=== PATIENT | female | born 1960 | race Hispanic/Latino ===

== ENCOUNTER 2019-08-17 22:17 | Emergency (ER) | payer MEDICARE ==
[~2019-08-17] VITALS: Ht 162.6 cm; Wt 81.6 kg
[2019-08-17] MEDS ORDERED: DIATRIZOATE MEGL/DIATRIZOA SOD 30 ML BTL PO ONE (22:50)
--- NOTE | 2019-08-17 23:29 | Diagnostic Imaging Report ---
EXAM: Abdomen Radiograph 1 View(s) INDICATION: ^PEG TUBE PLACEMENT ^[id number] ^[id number] COMPARISON: None FINDINGS: Contrast injected through an existing percutaneous gastrostomy tube opacifies the stomach. The bowel gas pattern is nonspecific. An IVC filter is noted. No acute osseous abnormality. IMPRESSION: Contrast injection through the gastrostomy tube opacifies the stomach. Signed by: Alpesh Angelo MD on 08/17/2019 11:25 PM
--- NOTE | 2019-08-17 23:33 | Emergency Department Note ---
History of Present Illnes History of Present Illness Chief Complaint: General Medicine Complaints History of Present Illness This is a 58 year old female arrives to the ED for a PEG tube dislodgment-patient unable to provide history secondary to chronic clinical condition. History limited by: condition of the patient Progression: unable to specify Context: Reports other Treatments prior to arrival: none, other (ayala catheter in place on arrival ) Past Medical/Family History Physician Review I have reviewed the patient's past medical and family history. Any updates have been documented here. Past Medical History Unable to obtain PMH: Unable to obtain due to, altered mental status Social History Smoking Cessation: Unknown if ever smoked Review of Systems ROS Narrative Unable to obtain ROS: Unable to obtain due to, altered mental status Review of Systems Constitutional: Reports no symptoms EENTM: Reports no symptoms Cardiovascular: Reports no symptoms Respiratory: Reports no symptoms Gastrointestinal: Reports no symptoms Genitourinary: Reports as per HPI Musculoskeletal: Reports no symptoms Integumentary: Reports no symptoms Neurological: Reports no symptoms Psychological: Reports no symptoms Endocrine: Reports no symptoms Hematological/Lymphatic: Reports no symptoms Review of other systems: All other systems negative Physical Exam Related Data Vital signs reviewed: Yes Physical Exam CONSTITUTIONAL Constitutional: Present other (+trache) HENT HENT: Present normocephalic, Present atraumatic, Present nose normal HENT L/R: Present left ext ear normal, Present right ext ear normal EYES Eyes: Reports PERRL, Reports conjunctivae normal NECK PULMONARY CARDIOVASCULAR Cardiovascular: Present regular rhythm, Present tachycardia GASTROINTESTINAL Abdominal: Present nontender, Present bowel sounds normal GENITOURINARY SKIN Skin: Present warm, Present dry MUSCULOSKELETAL NEUROLOGICAL Neurological: Present alert PSYCHOLOGICAL Results Imaging Imaging results reviewed: Yes Imaging Comments IMPRESSION: Contrast injection through the gastrostomy tube opacifies the stomach. Assessment & Plan Medical Decision Making MDM 58-year-old female arrived to the ED for a G-tube dislodgment, G-tube replaced at bedside, confirmed with Gastrografin, patient stable for discharge home Assessment & Plan Final Impression: (1) Gastrojejunostomy tube dislodgement Depart Disposition: DIS TO [facility] BED Medications in the ED Diatrizoate Meglum/ Diatrizoate Sod 60 ml STK-MED ONCE PO ; Start 08/17/19 at 22:50; Stop 08/17/19 at 22:45; Status DC NAIDA VENTURA, DO Aug 17, 2019 23:33
== END 2019-08-17 23:40 ==
LOC: ER 22:50
DX: Z43.1 Encounter for attention to gastrostomy (principal); L89.159 Pressure ulcer of sacral region, unspecified stage; G91.9 Hydrocephalus, unspecified; G40.909 Epilepsy, unspecified, not intractable, without status epilepticus; Z86.73 Personal history of transient ischemic attack (TIA), and cerebral infarction without residual deficits
CPT/HCPCS: 74018; 99283

== ENCOUNTER 2019-08-19 12:09 | Emergency (ER) | payer MEDICARE ==
[~2019-08-19] VITALS: Ht 165.1 cm; Wt 68.0 kg
[2019-08-19] MEDS ORDERED: DIATRIZOATE MEGL/DIATRIZOA SOD 30 ML BTL PO ONE (12:46)
--- NOTE | 2019-08-19 12:52 | Emergency Department Note ---
History of Present Illnes History of Present Illness Chief Complaint: General Medicine Complaints History of Present Illness This is a 58 year old female ATIENT BROUGHT IN FROM SNF FOR DISLODGED PEG TUBE. 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 Any updates have been documented here. Past Medical History Recent Fever: No Clinical Suspicion of Infectio: No New/Unexplained Change in Ment: No Past Medical History: GERD Other Medical History: ACUTE AND CHRONIC RESP FAILURE CARPAL TUNNEL SYNDROME CEREBRAL INFARCT EPILEPSY TACHYCARDIA HYDROCEPHALUS PRESSURE ULCER OF SACRAL REGION Other Surgery: TRACH COLLAR Social History Smoking Cessation: Unknown if ever smoked Counseling Performed: No Review of Systems Review of Systems Constitutional: Reports no symptoms EENTM: Reports no symptoms Cardiovascular: Reports no symptoms Respiratory: Reports no symptoms Gastrointestinal: Reports as per HPI Genitourinary: Reports no symptoms Musculoskeletal: Reports no symptoms Integumentary: Reports no symptoms Neurological: Reports no symptoms Psychological: Reports no symptoms Endocrine: Reports no symptoms Hematological/Lymphatic: Reports no symptoms Physical Exam Related Data Triage Vital Signs Vital Signs Date Time Temp Pulse Resp B/P (MAP) Pulse Ox O2 Delivery O2 Flow Rate FiO2 08/19/19 12:23 98.3 119 20 144/87 97 Room Air Vital signs reviewed: Yes Physical Exam CONSTITUTIONAL Constitutional: Present well-developed, Present well-nourished HENT HENT: Present normocephalic, Present atraumatic, Present oropharynx clear/moist, Present nose normal HENT L/R: Present left ext ear normal, Present right ext ear normal EYES Eyes: Reports PERRL, Reports conjunctivae normal NECK Neck: Present ROM normal PULMONARY Pulmonary: Present effort normal, Present breath sounds normal CARDIOVASCULAR Cardiovascular: Present regular rhythm, Present heart sounds normal, Present capillary refill normal, Present normal rate GASTROINTESTINAL Abdominal: Present soft, Present nontender, Present bowel sounds normal, Present other (G-TUBE NOT PRESENT, fFOLEY LAYING ON STOMACH LIKE THE FACILITY HAD IT IN STOMA BUT NOT CURRENTLY IN STOMA) GENITOURINARY Genitourinary: Present exam deferred SKIN Skin: Present warm, Present dry MUSCULOSKELETAL Musculoskeletal: Present ROM normal NEUROLOGICAL Neurological: Present other (NO SPEECH, MULTIPLE CONTRACTURES) PSYCHOLOGICAL Psychological: Present mood/affect normal, Present judgement normal Results Imaging Imaging results reviewed: Yes Procedures Feeding Tube Replacement Type of tube: gastrostomy Prior insertion site: clean Tube used for reinsertion: Bard Tube size (F): 16 Balloon size (mL): 6 Verification of placement: auscultation, abdominal xray, gastrografin injection Tube secured by: tape/dressing Patient tolerated procedure: well Assessment & Plan Medical Decision Making MDM REPLACED G-TUBE Reassessment Reassessment XRAY TO CONFIRM PLACEMENT Assessment & Plan Final Impression: (1) Gastrojejunostomy tube dislodgement (2) Encounter for feeding tube placement Depart Disposition: TRANSFER CARE HOME Last Vital Signs Date Time Temp Pulse Resp B/P (MAP) Pulse Ox O2 Delivery O2 Flow Rate FiO2 08/19/19 12:28 136/92 08/19/19 12:23 98.3 119 20 97 Room Air Medications in the ED Diatrizoate Meglum/ Diatrizoate Sod 30 ml STK-MED ONCE PO ; Start 08/19/19 at 12:46; Stop 08/19/19 at 12:41; Status DC ALYSSA ZAMUDIO MD Aug 19, 2019 12:52
--- NOTE | 2019-08-19 13:38 | Diagnostic Imaging Report ---
Exam: Limited abdominal film Clinical History: G-tube placement Comparison: KUB 08/17/2019 DISCUSSION: Exam markedly limited by motion artifact. Contrast injected through a percutaneous gastrostomy tube opacifies the stomach. Residual contrast is noted in the large bowel and likely distal small bowel. IVC filter is unchanged. Lung bases are grossly clear. IMPRESSION: 1. Contrast injection through the percutaneous gastrostomy tube opacifies the stomach. The staff physician below has personally reviewed this exam on the date of dictation. Signed by: Dr. Andrew Levy M.D. on 08/19/2019 1:34 PM
[2019-08-19 14:41] VITALS: BP 144/75
== END 2019-08-19 14:45 ==
LOC: ER 12:55
DX: Z43.1 Encounter for attention to gastrostomy (principal); J96.20 Acute and chronic respiratory failure, unspecified whether with hypoxia or hypercapnia; K21.9 Gastro-esophageal reflux disease without esophagitis; G91.9 Hydrocephalus, unspecified; G40.909 Epilepsy, unspecified, not intractable, without status epilepticus; Z86.73 Personal history of transient ischemic attack (TIA), and cerebral infarction without residual deficits
CPT/HCPCS: 74018; 99284

== ENCOUNTER 2019-10-24 02:55 | Emergency (ER) | payer MEDICARE ==
[~2019-10-24] VITALS: Ht 165.1 cm; Wt 68.0 kg
--- NOTE | 2019-10-24 03:05 | NUR ---
G-Tube replaced with Fr.16 replacement straight balloon kit by Dr Vazquez at bedside, Food particles & stomach fluids return noted. X-ray order for placement confirmation. Pt tolerated it well.
--- NOTE | 2019-10-24 03:11 | Emergency Department Note ---
History of Present Illnes History of Present Illness Chief Complaint: Abdominal Complaints History of Present Illness This is a 59 year old female .Patient brought in from [facility] for pulled of G-tube Historian: Travel Accommodations Rater/EMS Arrival Mode: [facility] Treatment PAID INTERN: See EMS Report History limited by: other (pt with h/o cva non verbal) Onset (how long ago): unknown Onset quality: unable to specify Progression: unable to specify Chronicity: recurrent Past Medical/Family History Physician Review I have reviewed the patient's past medical and family history. Any updates have been documented here. Past Medical History Recent Fever: No Clinical Suspicion of Infectio: No New/Unexplained Change in Ment: No Past Medical History: Seizure Disorder Other Medical History: AVM. HYDROCEPHALUS,RESPIRATORY FAILURE, EPILEPSY, CEREBRAL INFARCT,TACHYCARDIA, PEG TUBE, PRESSURE ULCER SACRAL, TRACHEOSTOMY Other Surgery: TRACH COLLAR Social History Unable to obtain PSH: Unable to obtain due to, other (pt with h/o cva non verbal) Review of Systems ROS Narrative Unable to obtain ROS: Unable to obtain due to, other (pt with h/o cva and i snon verbal, does not talk or anwer questions) Physical Exam Related Data Allergies: Coded Allergies: No Known Allergies (Unverified , 10/24/19) Triage Vital Signs Vital Signs Date Time Temp Pulse Resp B/P (MAP) Pulse Ox O2 Delivery O2 Flow Rate FiO2 10/24/19 02:59 99.0 108 18 135/83 100 Trach Collar 5.0 Vital signs reviewed: Yes Physical Exam CONSTITUTIONAL Constitutional: Present well-developed, Present well-nourished, Present obese HENT HENT: Present normocephalic, Present atraumatic, Present oropharynx clear/moist, Present nose normal HENT L/R: Present left ext ear normal, Present right ext ear normal EYES Eyes: Reports PERRL, Reports conjunctivae normal NECK Neck: Present ROM normal PULMONARY Pulmonary: Present effort normal, Present breath sounds normal CARDIOVASCULAR Cardiovascular: Present regular rhythm, Present heart sounds normal, Present capillary refill normal, Present tachycardia (102) GASTROINTESTINAL Abdominal: Present soft, Present nontender, Present bowel sounds normal, Present other (ayala catheter in stoma for peg tube) GENITOURINARY Genitourinary: Present exam deferred SKIN Skin: Present warm, Present dry MUSCULOSKELETAL Musculoskeletal: Present ROM normal NEUROLOGICAL Neurological: Present other (pt contracted, does not follow commnads at baseline per assisted records) PSYCHOLOGICAL Psychological: Present mood/affect normal, Present judgement normal Results Imaging Imaging results reviewed: Yes Procedures Feeding Tube Replacement Type of tube: gastrostomy Prior insertion site: clean Tube used for reinsertion: other (16 burmese peg tube) Tube size (F): 16 Balloon size (mL): 5 Verification of placement: abdominal xray, gastrografin injection Tube secured by: tape/dressing Patient tolerated procedure: well Assessment & Plan Medical Decision Making MDM peg tube replaced Assessment & Plan Final Impression: (1) Encounter for feeding tube placement (2) Dislodged gastrostomy tube Depart Disposition: DIS TO SNF BED Last Vital Signs Date Time Temp Pulse Resp B/P (MAP) Pulse Ox O2 Delivery O2 Flow Rate FiO2 10/24/19 02:59 99.0 108 18 135/83 100 Trach Collar 5.0 Medications in the ED Diatrizoate Meglum/ Diatrizoate Sod 30 ml STK-MED ONCE PO ; Start 10/24/19 at 03:12; Stop 10/24/19 at 03:06; Status DC FELIPE OLEARY MD Oct 24, 2019 03:11
[2019-10-24] MEDS ORDERED: DIATRIZOATE MEGL/DIATRIZOA SOD 30 ML BTL PO ONE (03:12)
--- NOTE | 2019-10-24 03:48 | Diagnostic Imaging Report ---
EXAM: Abdomen Radiograph 1 View INDICATION: ^with gastrografen to access g tube placement ^[id number] ^[id number] ^Y COMPARISON: Abdominal radiograph 08/19/2019 FINDINGS: No abnormalities in the lower chest. Contrast instilled via the gastrostomy tube occupies the gastric lumen. Peritoneal catheter, the superior aspect extends towards the right upper chest, possibly a ventriculoperitoneal shunt. Normal volume of stool in the colon. Moderate rectal stool volume. No dilated loops of small bowel. No abnormal abdominal calcifications.. No abnormal soft tissue masses. No pneumoperitoneum. No acute osseous abnormality. Degenerative changes. IVC filter. IMPRESSION: Contrast instilled via the gastrostomy tube occupies the gastric lumen. Moderate rectal stool volume. Signed by: Tony Pickard DO on 10/24/2019 3:44 AM
--- NOTE | 2019-10-24 03:54 | NUR ---
New brief applied at this time.
--- NOTE | 2019-10-24 04:42 | NUR ---
EMS arrived for pt transport back to [facility].
[2019-10-24 05:20] VITALS: BP 101/65
== END 2019-10-24 05:25 ==
LOC: ER 03:00
DX: Z43.1 Encounter for attention to gastrostomy (principal); G40.909 Epilepsy, unspecified, not intractable, without status epilepticus; I69.30 Unspecified sequelae of cerebral infarction
CPT/HCPCS: 74018; 99284

== ENCOUNTER 2019-10-26 22:13 | Emergency (ER) | payer MEDICARE ==
[~2019-10-26] VITALS: Ht 165.1 cm; Wt 68.0 kg
--- OUTSIDE RECORDS SUMMARY | 2019-10-26 22:36 | XMS REPORT | Continuity of Care Document ---
Author Author [facility] t Organization [facility] Address [address] [place] [address] Phone Unavailable Care Team Providers Care [employer] Consultant Name Role Phone MD LILA R KWAME PCP Unavailable Milagro OLEARY Attphys Unavailable Roxann ZAMUDIO Attphys Unavailable Chela VENTURA Attphys Unavailable Doctor Unassigned, Name No Attphys Unavailable Srikanth SINGLETARY, Esteban Marroquin Attphys Unavailable Malika SEGOVIA, Joseph Attphys Chris SINGLETARY, Gladys Booker Attphys Banipal Morrical DO, Gusaran Attphys Isabel SEGOVIA, P Bill Attphys Lyle SEGOVIA, Blas Attphys Leann Patel Attphys Suzie SEGOVIA, Aye Manzanares Attphys Will DO, S Oskar Attphys GalCarlos pedraza DO Attphys Malika SEGOVIA, Joseph Admphys Isabel SEGOVIA, P Bill Admphys Will BHATIA, Chela Schmitt Admphys Payers Payer Name Policy Type Policy Number Effective Date Expiration Date Chela jnekins Medicare A & B [id number] 2019 00:00:00 [facility] Problems Condition Name Condition Details Condition Category Status Onset Date Resolution Date Last Treatment Date Treating Clinician Comments Source Gastrojejunostomy tube dislodgement Problem Active [facility] Encounter for feeding tube placement Problem Active [facility] Dislodged gastrostomy tube Problem Active [facility] Allergies, Adverse Reactions, Alerts Allergy Name Allergy Type Status Severity Reaction(s) Onset Date Inacti ve Date Treating Clinician Comments Source No Known Allergies DA Active U 2016-11-08 00:00:00 [facility] Social History Social Habit Start Date Stop Date Quantity Comments Source Sex Assigned At 1960 00:00:00 1960 00:00:00 Female [facility] Medications This patient has no known medications. Vital Signs Vital Name Observation Time Observation Value Comments Source Body Temperature 2019-10-24 05:20:00 98.1 [degF] [facility] Weight 2019-10-24 02:59:00 150 [lb_av] [facility] BMI (Body Mass Index) 2019-10-24 02:59:00 25.0 kg/m2 [facility] Body Temperature 2019-08-19 14:41:00 98.3 [degF] [facility] Weight 2019-08-19 12:23:00 150 [lb_av] [facility] BMI (Body Mass Index) 2019-08-19 12:23:00 25.0 kg/m2 [facility] Weight 2019-08-17 22:30:00 180 [lb_av] [facility] BMI (Body Mass Index) 2019-08-17 22:30:00 30.9 kg/m2 [facility] Procedures Procedure Date / Time Performed Performing Clinician [facility] 2019-08-19 00:00:[address] [facility] Chela gonzales [facility] 2019-08-17 00:00:00 [facility] Encounters Start Date/Time End Date/Time Encounter Type Admission Type [facility] Care Department Encounter ID Source 2019-10-24 03:00:00 2019-10-24 05:25:00 Departed Emergency Room 1 FELIPE OLEARY [facility] [id number] [facility] 2019-08-19 12:55:00 2019-08-19 14:45:00 Departed Emergency Room 1 ALYSSA ZAMUDIO [facility] [id number] [facility] 2019-08-17 22:50:00 2019-08-17 23:40:00 Departed Emergency Room 1 AUDREY NAIDA [facility] [id number] [facility] 2019-08-01 00:00:00 2019-08-01 00:00:00 Orders Only D andrewor Unassigned, [place] [facility] [id number] 2019-07-27 00:00:00 2019-07-27 00:00:00 [facility] [id number] 2019-05-30 10:01:00 2019-07-13 21:45:00 [facility] [id number] 2019-05-26 00:00:00 2019-05-26 00:00:00 Transition of Care Ade Perez [facility] [id number] 2019-04-29 08:25:18 2019-05-25 19:08:00 Hospital Encounter Piero Sawyer, Shirley Hall[facility] [id number] 2019-05-01 00:00:00 2019-05-01 00:00:00 Transition of Care Leann Patel [facility] [id number] 2019-04-19 10:43:27 2019-04-27 16:45:00 Hospital Encounter Leighton Larsen, Oskar S [facility] [id number] 2019-03-26 14:11:43 2019-03-30 12:23:58 Office Visit Carlos Bermudez [facility] [id number] Results Test Description Test Time Test Comments Results Result Comments Source - CONT INJ GS/ LISSA/ JJ/ GG 2019-10-25 20:05:00 F AX: Mikaela Little MD [phone] [place]: B St: REG -- Name: JENNIFER FIGUEROA [facility] : 1960 Age/S: 59/F Sasha Awad [facility] Unit #: [id number] Loc: [place] [address] Phys: Mikaela Little MD Acct: [id number] Dis Date: Status: REG ER PHONE #: [phone] Exam Date: 10/25/20191951 FAX #: [phone] Reason: PEG TUBE REPLACEMENT EXAMS: CPT CODE: [id number] CONT INJ GS/ DU/ JJ/ [place] [id number] REASON FOR EXAM: PEG TUBE REPLACEMENT EXAM ORDER DATE: 10/25/2019 6:58 PM Attending M.D.: Mikaela Little MD PROCEDURE: - CONT INJ GS/ DU/ JJ/ GG Location:[facility] COMPARISON:None FINDINGS: 2 views of the abdomen obtained at 7:42 PM. The recruiting intern radiograph shows unremarkable small bowel. Gastrografin injected through the existing G-tube shows opacification of the stomach and small bowel without evidence of extravasation IMPRESSION: No evidence of extravasation at 2004 Reported and signed by: Cisco Joseph M.D. CC: Mikaela Little MD Technologist: STEPHANIE ESPAÑA; William Bynum, RT(R Trnscrd Date/Time/By: 10/25/2019 (2004) : By: [email or web address] Orig Print D/T: S: 10/25/2019 (2008) PAGE 1 Signed Report ABDOMEN-1VIEW (KUB) 2019-10-24 03:42:00 [place] [address] Patient Name: JENNIFER FIGUEROA MR #: [id number] : 1960 Age/Sex: 59/F Req #: [id number] Adm Physician: Ordered by: FELIPE OLEARY MD Report #: [id number] Location: ER Room/Bed: Procedure: DX/ABDOMEN-1VIEW (KUB) Exam Date: 10/24/19 Exam Time: 309 REPORT STATUS: Signed EXAM: Abdomen Radiograph 1 View INDICATION: with gastrografen to access g tube placement [id number] COMPARISON: Abdominal radiograph 08/19/2019 FINDINGS: No abnormalities in the lower chest. Contrast instilled via the gastrostomy tube occupies the gastric lumen. Peritoneal catheter, the superior aspect extends towards the right upper chest, possibly a ventriculoperitoneal shunt. Normal volume of stool in the colon. Moderate rectal stool volume. No dilated loops of small bowel. No abnormal abdominal calcifications.. No abnormal soft tissue masses. No pneumoperitoneum. No acute oss eous abnormality. Degenerative changes. IVC filter. IMPRESSION: Contrast instilled via the gastrostomy tube occupies the gastric lumen. Moderate rectal stool volume. Signed by: Tony Miranda DO on 10/24/2019 3:44 AM Dictated By: TONY MIRANDA DO 3 Transcribed By: ANÍBAL on 10/24/19343 COPY TO: FELIPE OLEARY MD GLUBED 2019-09-04 11:24:00 Test Item GLUBED (test code = GLUBED) 113 mg/dL 74-106 H Performed by certified dull coat mill operator at [facility] [id number] 07:28:00* Test Item Value Reference Range Interpretation Comments GLUBED (test code = GLUBED) 115 mg/dL 74-106 H Performed by certified dull coat mill operator at [facility] CBC W/AUTO [id number] 03:05:00* Test Item Value Reference Range Interpretation Comments WHITE BLOOD CELL (test code = WBC) 7.2 K/mm3 4.5-12.5 N RED BLOOD CELL (test code = RBC) 3.56 mill/mm3 3.7-5.2 L HEMOGLOBIN (test code = HGB) 8.3 gram/dL 11.5-15.5 L HEMATOCRIT (test code = HCT) 28.6 % 36.0-46.0 L MEAN CELL VOLUME (test code = MCV) 80.3 fL 80-98 N MEAN CELL HGB (test code = MCH) 23.3 picogram 27.0-33.0 L MEAN CELL HGB CONCETRATION (test code = MCHC) 29.0 gram/dL 33.0-36. 0 L RED CELL DISTRIBUTION WIDTH (test code = RDW) 17.5 % 11.6-16. 2 H RED CELL DISTRIBUTION WIDTH SD (test code = RDW-SD) 51.3 fL 37 .0-51.0 H PLATELET COUNT (test code = PLT) 532 K/mm3 150-450 H MEAN PLATELET VOLUME (test code = MPV) 9.6 fL 6.7-11.0 N NEUTROPHIL % (test code = NT%) 71.3 % 39.0-69.0 H IMMATURE GRANULOCYTE % (test code = IG%) 0.3 % 0.0-5.0 N LYMPHOCYTE % (test code = LY%) 18.8 % 25.0-55.0 L MONOCYTE % (test code = MO%) 7.6 % 0.0-10.0 N EOSINOPHIL % (test code = EO%) 1.7 % 0.0-5.0 N BASOPHIL % (test code = BA%) 0.3 % 0.0-1.0 N NUCLEATED RBC % (test code = NRBC%) 0.0 % 0-0 N NEUTROPHIL # (test code = NT#) 5.13 K/mm3 1.8-7.7 N IMMATURE GRANULOCYTE # (test code = IG#) 0.02 x10 3/uL 0-0.03 N LYMPHOCYTE # (test code = LY#) 1.35 K/mm3 1.0-5.0 N MONOCYTE # (test code = MO#) 0.55 K/mm3 0-0.8 N EOSINOPHIL # (test code = EO#) 0.12 K/mm3 0.0-0.5 N BASOPHIL # (test code = BA#) 0.02 K/mm3 0.0-0.2 N NUCLEATED RBC # (test code = NRBC#) 0.00 K/mm3 0.0-0.1 N MANUAL DIFF REQUIRED (test code = MDIFF) NO, ONLY SCAN NEEDED DIFFERENTIAL [id number] 03:05:00* Test Item Value Reference Range Interpretation Comments STAIN ACCEPTABILITY (test code = STN ACCEPTABLE) STAIN ACCEPTABLE POLYCHROMASIA (test code = POLC) 1+ HYPOCHROMIA (test code = HYPO) 2+ ANISOCYTOSIS (test code = ANISO) 2+ MICROCYTOSIS (test code = MICR) 2+ PLATELET ESTIMATE (test code = PLTEST) INCREASED PLATELET MORPHOLOGY (test code = PLTMORPH) NORMAL BASIC METABOLIC [id number] 02:44:00* Test Item Value Reference Range Interpretation Comments SODIUM (test code = NA) 140 mmol/L 136-145 N POTASSIUM (test code = K) 3.1 mmol/L 3.5-5.1 L CHLORIDE (test code = CL) 112.0 mmol/L 98-107 H CARBON DIOXIDE (test code = CO2) 23.0 mmol/L 21-32 N ANION GAP (test code = GAP) 8.1 10-20 L GLUCOSE (test code = GLU) 112 mg/dL 74-106 H BLOOD UREA NITROGEN (test code = BUN) 9 mg/dL 7-18 N GLOMERULAR FILTRATION RATE (test code = GFR) > 60 mL/min >=60 Estimated GFR by using Modified MDRD formula.Chronic kidney disease is defined as either kidney damageor GFR <60 mL/min/1.73 m2 for >3 months. CREATININE (test code = CREAT) 0.20 mg/dL 0.55-1.02 L Note change in reference range due to change in reagent. BUN/CREATININE RATIO (test code = BUN/CREA) 50.8 10-20 H CALCIUM (test code = CA) 8.6 mg/dL 8.5-10.1 N BASIC METABOLIC [id number] 02:38:00* Test Item Value Reference Range Interpretation Comments SODIUM (test code = NA) 140 mmol/L 136-145 N POTASSIUM (test code = K) 3.1 mmol/L 3.5-5.1 L CHLORIDE (test code = CL) 112.0 mmol/L 98-107 H CARBON DIOXIDE (test code = CO2) mmol/L 21-32 ANION GAP (test code = GAP) 10-20 GLUCOSE (test code = GLU) mg/dL 74-106 BLOOD UREA NITROGEN (test code = BUN) mg/dL 7-18 GLOMERULAR FILTRATION RATE (test code = GFR) mL/min >=60 CREATININE (test code = CREAT) mg/dL 0.55-1.02 BUN/CREATININE RATIO (test code = BUN/CREA) 10-20 CALCIUM (test code = CA) 8.6 mg/dL 8.5-10.1 N CBC W/AUTO [id number] 02:23:00* Test Item Value Reference Range Interpretation Comments WHITE BLOOD CELL (test code = WBC) 7.2 K/mm3 4.5-12.5 N RED BLOOD CELL (test code = RBC) 3.56 mill/mm3 3.7-5.2 L HEMOGLOBIN (test code = HGB) 8.3 gram/dL 11.5-15.5 L HEMATOCRIT (test code = HCT) 28.6 % 36.0-46.0 L MEAN CELL VOLUME (test code = MCV) 80.3 fL 80-98 N MEAN CELL HGB (test code = MCH) 23.3 picogram 27.0-33.0 L MEAN CELL HGB CONCETRATION (test code = MCHC) 29.0 gram/dL 33.0-36. 0 L RED CELL DISTRIBUTION WIDTH (test code = RDW) 17.5 % 11.6-16. 2 H RED CELL DISTRIBUTION WIDTH SD (test code = RDW-SD) 51.3 fL 37 .0-51.0 H PLATELET COUNT (test code = PLT) 532 K/mm3 150-450 H MEAN PLATELET VOLUME (test code = MPV) 9.6 fL 6.7-11.0 N NEUTROPHIL % (test code = NT%) 71.3 % 39.0-69.0 H IMMATURE GRANULOCYTE % (test code = IG%) 0.3 % 0.0-5.0 N LYMPHOCYTE % (test code = LY%) 18.8 % 25.0-55.0 L MONOCYTE % (test code = MO%) 7.6 % 0.0-10.0 N EOSINOPHIL % (test code = EO%) 1.7 % 0.0-5.0 N BASOPHIL % (test code = BA%) 0.3 % 0.0-1.0 N NUCLEATED RBC % (test code = NRBC%) 0.0 % 0-0 N NEUTROPHIL # (test code = NT#) 5.13 K/mm3 1.8-7.7 N IMMATURE GRANULOCYTE # (test code = IG#) 0.02 x10 3/uL 0-0.03 N LYMPHOCYTE # (test code = LY#) 1.35 K/mm3 1.0-5.0 N MONOCYTE # (test code = MO#) 0.55 K/mm3 0-0.8 N EOSINOPHIL # (test code = EO#) 0.12 K/mm3 0.0-0.5 N BASOPHIL # (test code = BA#) 0.02 K/mm3 0.0-0.2 N NUCLEATED RBC # (test code = NRBC#) 0.00 K/mm3 0.0-0.1 N MANUAL DIFF REQUIRED (test code = MDIFF) NO, ONLY SCAN NEEDED DIFFERENTIAL [id number] 02:23:00* Test Item Value Reference Range Interpretation Comments STAIN ACCEPTABILITY (test code = STN ACCEPTABLE) CABOT RINGS (test code = CAB) MORPHOLOGY COMMENT (test code = MOC) PLATELET ESTIMATE (test code = PLTEST) PLATELET MORPHOLOGY (test code = PLTMORPH) CBC W/AUTO [id number] 02:23:00* Test Item Value Reference Range Interpretation Comments WHITE BLOOD CELL (test code = WBC) 7.2 K/mm3 4.5-12.5 N RED BLOOD CELL (test code = RBC) 3.56 mill/mm3 3.7-5.2 L HEMOGLOBIN (test code = HGB) 8.3 gram/dL 11.5-15.5 L HEMATOCRIT (test code = HCT) 28.6 % 36.0-46.0 L MEAN CELL VOLUME (test code = MCV) 80.3 fL 80-98 N MEAN CELL HGB (test code = MCH) 23.3 picogram 27.0-33.0 L MEAN CELL HGB CONCETRATION (test code = MCHC) 29.0 gram/dL 33.0-36. 0 L RED CELL DISTRIBUTION WIDTH (test code = RDW) 17.5 % 11.6-16. 2 H RED CELL DISTRIBUTION WIDTH SD (test code = RDW-SD) 51.3 fL 37 .0-51.0 H PLATELET COUNT (test code = PLT) 532 K/mm3 150-450 H MEAN PLATELET VOLUME (test code = MPV) 9.6 fL 6.7-11.0 N NEUTROPHIL % (test code = NT%) 71.3 % 39.0-69.0 H IMMATURE GRANULOCYTE % (test code = IG%) 0.3 % 0.0-5.0 N LYMPHOCYTE % (test code = LY%) 18.8 % 25.0-55.0 L MONOCYTE % (test code = MO%) 7.6 % 0.0-10.0 N EOSINOPHIL % (test code = EO%) 1.7 % 0.0-5.0 N BASOPHIL % (test code = BA%) 0.3 % 0.0-1.0 N NUCLEATED RBC % (test code = NRBC%) 0.0 % 0-0 N NEUTROPHIL # (test code = NT#) 5.13 K/mm3 1.8-7.7 N IMMATURE GRANULOCYTE # (test code = IG#) 0.02 x10 3/uL 0-0.03 N LYMPHOCYTE # (test code = LY#) 1.35 K/mm3 1.0-5.0 N MONOCYTE # (test code = MO#) 0.55 K/mm3 0-0.8 N EOSINOPHIL # (test code = EO#) 0.12 K/mm3 0.0-0.5 N BASOPHIL # (test code = BA#) 0.02 K/mm3 0.0-0.2 N NUCLEATED RBC # (test code = NRBC#) 0.00 K/mm3 0.0-0.1 N MANUAL DIFF REQUIRED (test code = MDIFF) NO, ONLY SCAN NEEDED DIFFERENTIAL [id number] 02:23:00* Test Item Value Reference Range Interpretation Comments STAIN ACCEPTABILITY (test code = STN ACCEPTABLE) CABOT RINGS (test code = CAB) MORPHOLOGY COMMENT (test code = MOC) PLATELET ESTIMATE (test code = PLTEST) PLATELET MORPHOLOGY (test code = PLTMORPH) CBC W/AUTO [id number] 02:23:00* Test Item Value Reference Range Interpretation Comments WHITE BLOOD CELL (test code = WBC) 7.2 K/mm3 4.5-12.5 N RED BLOOD CELL (test code = RBC) 3.56 mill/mm3 3.7-5.2 L HEMOGLOBIN (test code = HGB) 8.3 gram/dL 11.5-15.5 L HEMATOCRIT (test code = HCT) 28.6 % 36.0-46.0 L MEAN CELL VOLUME (test code = MCV) 80.3 fL 80-98 N MEAN CELL HGB (test code = MCH) 23.3 picogram 27.0-33.0 L MEAN CELL HGB CONCETRATION (test code = MCHC) 29.0 gram/dL 33.0-36. 0 L RED CELL DISTRIBUTION WIDTH (test code = RDW) 17.5 % 11.6-16. 2 H RED CELL DISTRIBUTION WIDTH SD (test code = RDW-SD) 51.3 fL 37 .0-51.0 H PLATELET COUNT (test code = PLT) 532 K/mm3 150-450 H MEAN PLATELET VOLUME (test code = MPV) 9.6 fL 6.7-11.0 N NEUTROPHIL % (test code = NT%) 71.3 % 39.0-69.0 H IMMATURE GRANULOCYTE % (test code = IG%) 0.3 % 0.0-5.0 N LYMPHOCYTE % (test code = LY%) 18.8 % 25.0-55.0 L MONOCYTE % (test code = MO%) 7.6 % 0.0-10.0 N EOSINOPHIL % (test code = EO%) 1.7 % 0.0-5.0 N BASOPHIL % (test code = BA%) 0.3 % 0.0-1.0 N NUCLEATED RBC % (test code = NRBC%) 0.0 % 0-0 N NEUTROPHIL # (test code = NT#) 5.13 K/mm3 1.8-7.7 N IMMATURE GRANULOCYTE # (test code = IG#) 0.02 x10 3/uL 0-0.03 N LYMPHOCYTE # (test code = LY#) 1.35 K/mm3 1.0-5.0 N MONOCYTE # (test code = MO#) 0.55 K/mm3 0-0.8 N EOSINOPHIL # (test code = EO#) 0.12 K/mm3 0.0-0.5 N BASOPHIL # (test code = BA#) 0.02 K/mm3 0.0-0.2 N NUCLEATED RBC # (test code = NRBC#) 0.00 K/mm3 0.0-0.1 N MANUAL DIFF REQUIRED (test code = MDIFF) NO, ONLY SCAN NEEDED DIFFERENTIAL [id number] 02:23:00* Test Item Value Reference Range Interpretation Comments STAIN ACCEPTABILITY (test code = STN ACCEPTABLE) MORPHOLOGY COMMENT (test code = MOC) PLATELET ESTIMATE (test code = PLTEST) PLATELET MORPHOLOGY (test code = PLTMORPH) CBC W/AUTO [id number] 02:23:00* Test Item Value Reference Range Interpretation Comments WHITE BLOOD CELL (test code = WBC) 7.2 K/mm3 4.5-12.5 N RED BLOOD CELL (test code = RBC) 3.56 mill/mm3 3.7-5.2 L HEMOGLOBIN (test code = HGB) 8.3 gram/dL 11.5-15.5 L HEMATOCRIT (test code = HCT) 28.6 % 36.0-46.0 L MEAN CELL VOLUME (test code = MCV) 80.3 fL 80-98 N MEAN CELL HGB (test code = MCH) 23.3 picogram 27.0-33.0 L MEAN CELL HGB CONCETRATION (test code = MCHC) 29.0 gram/dL 33.0-36. 0 L RED CELL DISTRIBUTION WIDTH (test code = RDW) 17.5 % 11.6-16. 2 H RED CELL DISTRIBUTION WIDTH SD (test code = RDW-SD) 51.3 fL 37 .0-51.0 H PLATELET COUNT (test code = PLT) 532 K/mm3 150-450 H MEAN PLATELET VOLUME (test code = MPV) 9.6 fL 6.7-11.0 N NEUTROPHIL % (test code = NT%) 71.3 % 39.0-69.0 H IMMATURE GRANULOCYTE % (test code = IG%) 0.3 % 0.0-5.0 N LYMPHOCYTE % (test code = LY%) 18.8 % 25.0-55.0 L MONOCYTE % (test code = MO%) 7.6 % 0.0-10.0 N EOSINOPHIL % (test code = EO%) 1.7 % 0.0-5.0 N BASOPHIL % (test code = BA%) 0.3 % 0.0-1.0 N NUCLEATED RBC % (test code = NRBC%) 0.0 % 0-0 N NEUTROPHIL # (test code = NT#) 5.13 K/mm3 1.8-7.7 N IMMATURE GRANULOCYTE # (test code = IG#) 0.02 x10 3/uL 0-0.03 N LYMPHOCYTE # (test code = LY#) 1.35 K/mm3 1.0-5.0 N MONOCYTE # (test code = MO#) 0.55 K/mm3 0-0.8 N EOSINOPHIL # (test code = EO#) 0.12 K/mm3 0.0-0.5 N BASOPHIL # (test code = BA#) 0.02 K/mm3 0.0-0.2 N NUCLEATED RBC # (test code = NRBC#) 0.00 K/mm3 0.0-0.1 N MANUAL DIFF REQUIRED (test code = MDIFF) NO, ONLY SCAN NEEDED DIFFERENTIAL [id number] 02:23:00* Test Item Value Reference Range Interpretation Comments STAIN ACCEPTABILITY (test code = STN ACCEPTABLE) CABOT RINGS (test code = CAB) MORPHOLOGY COMMENT (test code = MOC) PLATELET ESTIMATE (test code = PLTEST) PLATELET MORPHOLOGY (test code = PLTMORPH) [id number] 20:22:00* Test Item Value Reference Range Interpretation Comments GLUBED (test code = GLUBED) 90 mg/dL 74-106 N Performed by certified dull coat mill operator at [facility] [id number] 16:21:00* Test Item Value Reference Range Interpretation Comments GLUBED (test code = GLUBED) 88 mg/dL 74-106 N Performed by certified dull coat mill operator at [facility] [id number] 11:40:00* Test Item Value Reference Range Interpretation Comments GLUBED (test code = GLUBED) 92 mg/dL 74-106 N Performed by certified dull coat mill operator at [facility] [id number] 07:44:00* Test Item Value Reference Range Interpretation Comments GLUBED (test code = GLUBED) 94 mg/dL 74-106 N Performed by certified dull coat mill operator at [facility] CBC W/AUTO [id number] 04:04:00* Test Item Value Reference Range Interpretation Comments WHITE BLOOD CELL (test code = WBC) 7.4 K/mm3 4.5-12.5 N RED BLOOD CELL (test code = RBC) 3.89 mill/mm3 3.7-5.2 N HEMOGLOBIN (test code = HGB) 9.1 gram/dL 11.5-15.5 L HEMATOCRIT (test code = HCT) 31.6 % 36.0-46.0 L MEAN CELL VOLUME (test code = MCV) 81.2 fL 80-98 N MEAN CELL HGB (test code = MCH) 23.4 picogram 27.0-33.0 L MEAN CELL HGB CONCETRATION (test code = MCHC) 28.8 gram/dL 33.0-36. 0 L RED CELL DISTRIBUTION WIDTH (test code = RDW) 17.7 % 11.6-16. 2 H RED CELL DISTRIBUTION WIDTH SD (test code = RDW-SD) 51.8 fL 37 .0-51.0 H PLATELET COUNT (test code = PLT) 533 K/mm3 150-450 H MEAN PLATELET VOLUME (test code = MPV) 10.1 fL 6.7-11.0 N NEUTROPHIL % (test code = NT%) 63.4 % 39.0-69.0 N IMMATURE GRANULOCYTE % (test code = IG%) 0.3 % 0.0-5.0 N LYMPHOCYTE % (test code = LY%) 22.3 % 25.0-55.0 L MONOCYTE % (test code = MO%) 10.8 % 0.0-10.0 H EOSINOPHIL % (test code = EO%) 2.4 % 0.0-5.0 N BASOPHIL % (test code = BA%) 0.8 % 0.0-1.0 N NUCLEATED RBC % (test code = NRBC%) 0.0 % 0-0 N NEUTROPHIL # (test code = NT#) 4.71 K/mm3 1.8-7.7 N IMMATURE GRANULOCYTE # (test code = IG#) 0.02 x10 3/uL 0-0.03 N LYMPHOCYTE # (test code = LY#) 1.66 K/mm3 1.0-5.0 N MONOCYTE # (test code = MO#) 0.80 K/mm3 0-0.8 N EOSINOPHIL # (test code = EO#) 0.18 K/mm3 0.0-0.5 N BASOPHIL # (test code = BA#) 0.06 K/mm3 0.0-0.2 N NUCLEATED RBC # (test code = NRBC#) 0.00 K/mm3 0.0-0.1 N MANUAL DIFF REQUIRED (test code = MDIFF) NO, ONLY SCAN NEEDED DIFFERENTIAL [id number] 04:04:00* Test Item Value Reference Range Interpretation Comments STAIN ACCEPTABILITY (test code = STN ACCEPTABLE) STAIN ACCEPTABLE POLYCHROMASIA (test code = POLC) 2+ HYPOCHROMIA (test code = HYPO) 1+ ANISOCYTOSIS (test code = ANISO) 1+ MORPHOLOGY COMMENT (test code = MOC) TEST NOT PERFORMED PLATELET ESTIMATE (test code = PLTEST) INCREASED PLATELET MORPHOLOGY (test code = PLTMORPH) NORMAL BASIC METABOLIC [id number] 03:45:00* Test Item Value Reference Range Interpretation Comments SODIUM (test code = NA) 144 mmol/L 136-145 N POTASSIUM (test code = K) 3.6 mmol/L 3.5-5.1 N CHLORIDE (test code = CL) 110.0 mmol/L 98-107 H CARBON DIOXIDE (test code = CO2) 27.0 mmol/L 21-32 N ANION GAP (test code = GAP) 10.6 10-20 N GLUCOSE (test code = GLU) 83 mg/dL 74-106 N BLOOD UREA NITROGEN (test code = BUN) 13 mg/dL 7-18 N GLOMERULAR FILTRATION RATE (test code = GFR) > 60 mL/min >=60 Estimated GFR by using Modified MDRD formula.Chronic kidney disease is defined as either kidney damageor GFR <60 mL/min/1.73 m2 for >3 months. CREATININE (test code = CREAT) 0.30 mg/dL 0.55-1.02 L Note change in reference range due to change in reagent. BUN/CREATININE RATIO (test code = BUN/CREA) 51.2 10-20 H CALCIUM (test code = CA) 8.8 mg/dL 8.5-10.1 N CBC W/AUTO [id number] 03:06:00* Test Item Value Reference Range Interpretation Comments WHITE BLOOD CELL (test code = WBC) 7.4 K/mm3 4.5-12.5 N RED BLOOD CELL (test code = RBC) 3.89 mill/mm3 3.7-5.2 N HEMOGLOBIN (test code = HGB) 9.1 gram/dL 11.5-15.5 L HEMATOCRIT (test code = HCT) 31.6 % 36.0-46.0 L MEAN CELL VOLUME (test code = MCV) 81.2 fL 80-98 N MEAN CELL HGB (test code = MCH) 23.4 picogram 27.0-33.0 L MEAN CELL HGB CONCETRATION (test code = MCHC) 28.8 gram/dL 33.0-36. 0 L RED CELL DISTRIBUTION WIDTH (test code = RDW) 17.7 % 11.6-16. 2 H RED CELL DISTRIBUTION WIDTH SD (test code = RDW-SD) 51.8 fL 37 .0-51.0 H PLATELET COUNT (test code = PLT) 533 K/mm3 150-450 H MEAN PLATELET VOLUME (test code = MPV) 10.1 fL 6.7-11.0 N NEUTROPHIL % (test code = NT%) 63.4 % 39.0-69.0 N IMMATURE GRANULOCYTE % (test code = IG%) 0.3 % 0.0-5.0 N LYMPHOCYTE % (test code = LY%) 22.3 % 25.0-55.0 L MONOCYTE % (test code = MO%) 10.8 % 0.0-10.0 H EOSINOPHIL % (test code = EO%) 2.4 % 0.0-5.0 N BASOPHIL % (test code = BA%) 0.8 % 0.0-1.0 N NUCLEATED RBC % (test code = NRBC%) 0.0 % 0-0 N NEUTROPHIL # (test code = NT#) 4.71 K/mm3 1.8-7.7 N IMMATURE GRANULOCYTE # (test code = IG#) 0.02 x10 3/uL 0-0.03 N LYMPHOCYTE # (test code = LY#) 1.66 K/mm3 1.0-5.0 N MONOCYTE # (test code = MO#) 0.80 K/mm3 0-0.8 N EOSINOPHIL # (test code = EO#) 0.18 K/mm3 0.0-0.5 N BASOPHIL # (test code = BA#) 0.06 K/mm3 0.0-0.2 N NUCLEATED RBC # (test code = NRBC#) 0.00 K/mm3 0.0-0.1 N MANUAL DIFF REQUIRED (test code = MDIFF) NO, ONLY SCAN NEEDED DIFFERENTIAL [id number] 03:06:00* Test Item Value Reference Range Interpretation Comments STAIN ACCEPTABILITY (test code = STN ACCEPTABLE) MORPHOLOGY COMMENT (test code = MOC) PLATELET ESTIMATE (test code = PLTEST) PLATELET MORPHOLOGY (test code = PLTMORPH) CBC W/AUTO [id number] 03:05:00* Test Item Value Reference Range Interpretation Comments WHITE BLOOD CELL (test code = WBC) 7.4 K/mm3 4.5-12.5 N RED BLOOD CELL (test code = RBC) 3.89 mill/mm3 3.7-5.2 N HEMOGLOBIN (test code = HGB) 9.1 gram/dL 11.5-15.5 L HEMATOCRIT (test code = HCT) 31.6 % 36.0-46.0 L MEAN CELL VOLUME (test code = MCV) 81.2 fL 80-98 N MEAN CELL HGB (test code = MCH) 23.4 picogram 27.0-33.0 L MEAN CELL HGB CONCETRATION (test code = MCHC) 28.8 gram/dL 33.0-36. 0 L RED CELL DISTRIBUTION WIDTH (test code = RDW) 17.7 % 11.6-16. 2 H RED CELL DISTRIBUTION WIDTH SD (test code = RDW-SD) 51.8 fL 37 .0-51.0 H PLATELET COUNT (test code = PLT) 533 K/mm3 150-450 H MEAN PLATELET VOLUME (test code = MPV) 10.1 fL 6.7-11.0 N NEUTROPHIL % (test code = NT%) 63.4 % 39.0-69.0 N IMMATURE GRANULOCYTE % (test code = IG%) 0.3 % 0.0-5.0 N LYMPHOCYTE % (test code = LY%) 22.3 % 25.0-55.0 L MONOCYTE % (test code = MO%) 10.8 % 0.0-10.0 H EOSINOPHIL % (test code = EO%) 2.4 % 0.0-5.0 N BASOPHIL % (test code = BA%) 0.8 % 0.0-1.0 N NUCLEATED RBC % (test code = NRBC%) 0.0 % 0-0 N NEUTROPHIL # (test code = NT#) 4.71 K/mm3 1.8-7.7 N IMMATURE GRANULOCYTE # (test code = IG#) 0.02 x10 3/uL 0-0.03 N LYMPHOCYTE # (test code = LY#) 1.66 K/mm3 1.0-5.0 N MONOCYTE # (test code = MO#) 0.80 K/mm3 0-0.8 N EOSINOPHIL # (test code = EO#) 0.18 K/mm3 0.0-0.5 N BASOPHIL # (test code = BA#) 0.06 K/mm3 0.0-0.2 N NUCLEATED RBC # (test code = NRBC#) 0.00 K/mm3 0.0-0.1 N MANUAL DIFF REQUIRED (test code = MDIFF) NO, ONLY SCAN NEEDED DIFFERENTIAL [id number] 03:05:00* Test Item Value Reference Range Interpretation Comments STAIN ACCEPTABILITY (test code = STN ACCEPTABLE) CABOT RINGS (test code = CAB) MORPHOLOGY COMMENT (test code = MOC) PLATELET ESTIMATE (test code = PLTEST) PLATELET MORPHOLOGY (test code = PLTMORPH) CBC W/AUTO [id number] 03:05:00* Test Item Value Reference Range Interpretation Comments WHITE BLOOD CELL (test code = WBC) 7.4 K/mm3 4.5-12.5 N RED BLOOD CELL (test code = RBC) 3.89 mill/mm3 3.7-5.2 N HEMOGLOBIN (test code = HGB) 9.1 gram/dL 11.5-15.5 L HEMATOCRIT (test code = HCT) 31.6 % 36.0-46.0 L MEAN CELL VOLUME (test code = MCV) 81.2 fL 80-98 N MEAN CELL HGB (test code = MCH) 23.4 picogram 27.0-33.0 L MEAN CELL HGB CONCETRATION (test code = MCHC) 28.8 gram/dL 33.0-36. 0 L RED CELL DISTRIBUTION WIDTH (test code = RDW) 17.7 % 11.6-16. 2 H RED CELL DISTRIBUTION WIDTH SD (test code = RDW-SD) 51.8 fL 37 .0-51.0 H PLATELET COUNT (test code = PLT) 533 K/mm3 150-450 H MEAN PLATELET VOLUME (test code = MPV) 10.1 fL 6.7-11.0 N NEUTROPHIL % (test code = NT%) 63.4 % 39.0-69.0 N IMMATURE GRANULOCYTE % (test code = IG%) 0.3 % 0.0-5.0 N LYMPHOCYTE % (test code = LY%) 22.3 % 25.0-55.0 L MONOCYTE % (test code = MO%) 10.8 % 0.0-10.0 H EOSINOPHIL % (test code = EO%) 2.4 % 0.0-5.0 N BASOPHIL % (test code = BA%) 0.8 % 0.0-1.0 N NUCLEATED RBC % (test code = NRBC%) 0.0 % 0-0 N NEUTROPHIL # (test code = NT#) 4.71 K/mm3 1.8-7.7 N IMMATURE GRANULOCYTE # (test code = IG#) 0.02 x10 3/uL 0-0.03 N LYMPHOCYTE # (test code = LY#) 1.66 K/mm3 1.0-5.0 N MONOCYTE # (test code = MO#) 0.80 K/mm3 0-0.8 N EOSINOPHIL # (test code = EO#) 0.18 K/mm3 0.0-0.5 N BASOPHIL # (test code = BA#) 0.06 K/mm3 0.0-0.2 N NUCLEATED RBC # (test code = NRBC#) 0.00 K/mm3 0.0-0.1 N MANUAL DIFF REQUIRED (test code = MDIFF) NO, ONLY SCAN NEEDED DIFFERENTIAL [id number] 03:05:00* Test Item Value Reference Range Interpretation Comments STAIN ACCEPTABILITY (test code = STN ACCEPTABLE) MORPHOLOGY COMMENT (test code = MOC) PLATELET ESTIMATE (test code = PLTEST) PLATELET MORPHOLOGY (test code = PLTMORPH) CBC W/AUTO [id number] 03:05:00* Test Item Value Reference Range Interpretation Comments WHITE BLOOD CELL (test code = WBC) 7.4 K/mm3 4.5-12.5 N RED BLOOD CELL (test code = RBC) 3.89 mill/mm3 3.7-5.2 N HEMOGLOBIN (test code = HGB) 9.1 gram/dL 11.5-15.5 L HEMATOCRIT (test code = HCT) 31.6 % 36.0-46.0 L MEAN CELL VOLUME (test code = MCV) 81.2 fL 80-98 N MEAN CELL HGB (test code = MCH) 23.4 picogram 27.0-33.0 L MEAN CELL HGB CONCETRATION (test code = MCHC) 28.8 gram/dL 33.0-36. 0 L RED CELL DISTRIBUTION WIDTH (test code = RDW) 17.7 % 11.6-16. 2 H RED CELL DISTRIBUTION WIDTH SD (test code = RDW-SD) 51.8 fL 37 .0-51.0 H PLATELET COUNT (test code = PLT) 533 K/mm3 150-450 H MEAN PLATELET VOLUME (test code = MPV) 10.1 fL 6.7-11.0 N NEUTROPHIL % (test code = NT%) 63.4 % 39.0-69.0 N IMMATURE GRANULOCYTE % (test code = IG%) 0.3 % 0.0-5.0 N LYMPHOCYTE % (test code = LY%) 22.3 % 25.0-55.0 L MONOCYTE % (test code = MO%) 10.8 % 0.0-10.0 H EOSINOPHIL % (test code = EO%) 2.4 % 0.0-5.0 N BASOPHIL % (test code = BA%) 0.8 % 0.0-1.0 N NUCLEATED RBC % (test code = NRBC%) 0.0 % 0-0 N NEUTROPHIL # (test code = NT#) 4.71 K/mm3 1.8-7.7 N IMMATURE GRANULOCYTE # (test code = IG#) 0.02 x10 3/uL 0-0.03 N LYMPHOCYTE # (test code = LY#) 1.66 K/mm3 1.0-5.0 N MONOCYTE # (test code = MO#) 0.80 K/mm3 0-0.8 N EOSINOPHIL # (test code = EO#) 0.18 K/mm3 0.0-0.5 N BASOPHIL # (test code = BA#) 0.06 K/mm3 0.0-0.2 N NUCLEATED RBC # (test code = NRBC#) 0.00 K/mm3 0.0-0.1 N MANUAL DIFF REQUIRED (test code = MDIFF) NO, ONLY SCAN NEEDED DIFFERENTIAL [id number] 03:05:00* Test Item Value Reference Range Interpretation Comments STAIN ACCEPTABILITY (test code = STN ACCEPTABLE) CABOT RINGS (test code = CAB) MORPHOLOGY COMMENT (test code = MOC) PLATELET ESTIMATE (test code = PLTEST) PLATELET MORPHOLOGY (test code = PLTMORPH) [id number] 20:55:00* Test Item Value Reference Range Interpretation Comments GLUBED (test code = GLUBED) 100 mg/dL 74-106 N Performed by certified dull coat mill operator at [facility] [id number] 15:46:00* Test Item Value Reference Range Interpretation Comments GLUBED (test code = GLUBED) 78 mg/dL 74-106 N Performed by certified dull coat mill operator at [facility] [id number] 10:48:00* Test Item Value Reference Range Interpretation Comments GLUBED (test code = GLUBED) 93 mg/dL 74-106 N Performed by certified dull coat mill operator at [facility] [id number] 08:01:00* Test Item Value Reference Range Interpretation Comments GLUBED (test code = GLUBED) 100 mg/dL 74-106 N Performed by certified dull coat mill operator at [facility] [id number] 20:21:00* Test Item Value Reference Range Interpretation Comments GLUBED (test code = GLUBED) 114 mg/dL 74-106 H Performed by certified dull coat mill operator at [facility] CBC W/AUTO [id number] 14:12:00* Test Item Value Reference Range Interpretation Comments WHITE BLOOD CELL (test code = WBC) 8.6 K/mm3 4.5-12.5 N RED BLOOD CELL (test code = RBC) 4.02 mill/mm3 3.7-5.2 N HEMOGLOBIN (test code = HGB) 9.4 gram/dL 11.5-15.5 L HEMATOCRIT (test code = HCT) 31.8 % 36.0-46.0 L MEAN CELL VOLUME (test code = MCV) 79.1 fL 80-98 L MEAN CELL HGB (test code = MCH) 23.4 picogram 27.0-33.0 L MEAN CELL HGB CONCETRATION (test code = MCHC) 29.6 gram/dL 33.0-36. 0 L RED CELL DISTRIBUTION WIDTH (test code = RDW) 17.7 % 11.6-16. 2 H RED CELL DISTRIBUTION WIDTH SD (test code = RDW-SD) 50.4 fL 37 .0-51.0 N PLATELET COUNT (test code = PLT) 655 K/mm3 150-450 H MEAN PLATELET VOLUME (test code = MPV) 9.4 fL 6.7-11.0 N NEUTROPHIL % (test code = NT%) 75.6 % 39.0-69.0 H IMMATURE GRANULOCYTE % (test code = IG%) 0.5 % 0.0-5.0 N LYMPHOCYTE % (test code = LY%) 16.8 % 25.0-55.0 L MONOCYTE % (test code = MO%) 5.9 % 0.0-10.0 N EOSINOPHIL % (test code = EO%) 0.9 % 0.0-5.0 N BASOPHIL % (test code = BA%) 0.3 % 0.0-1.0 N NUCLEATED RBC % (test code = NRBC%) 0.0 % 0-0 N NEUTROPHIL # (test code = NT#) 6.48 K/mm3 1.8-7.7 N IMMATURE GRANULOCYTE # (test code = IG#) 0.04 x10 3/uL 0-0.03 H LYMPHOCYTE # (test code = LY#) 1.44 K/mm3 1.0-5.0 N MONOCYTE # (test code = MO#) 0.51 K/mm3 0-0.8 N EOSINOPHIL # (test code = EO#) 0.08 K/mm3 0.0-0.5 N BASOPHIL # (test code = BA#) 0.03 K/mm3 0.0-0.2 N NUCLEATED RBC # (test code = NRBC#) 0.00 K/mm3 0.0-0.1 N MANUAL DIFF REQUIRED (test code = MDIFF) NO, ONLY SCAN NEEDED DIFFERENTIAL [id number] 14:12:00* Test Item Value Reference Range Interpretation Comments STAIN ACCEPTABILITY (test code = STN ACCEPTABLE) STAIN ACCEPTABLE POLYCHROMASIA (test code = POLC) 1+ HYPOCHROMIA (test code = HYPO) 1+ ANISOCYTOSIS (test code = ANISO) 1+ PLATELET ESTIMATE (test code = PLTEST) INCREASED PLATELET MORPHOLOGY (test code = PLTMORPH) NORMAL - XR CHEST 1 [id number] 14:03:00 FAX: Leila Martinez [phone] [place]: B St: PRE Name: JENNIFER FRANCISCO [facility] : [birth year] 59 Age/S: 58/F Sasha Ramirez Unit #: [id number] Loc: [place], [place] [address] Phys: Leila Beck Acct: [id number] Dis Date: Status: PRE ER PHONE #: [phone] Exam Date: 09/01/2019 1341 FAX #: [phone] Reason: tachycardia EXAMS: CPT CODE: [id number] XR CHEST 1 V 64296 HISTORY: Tachycardia. COMPARISON: May 30, 2019. Location: TH. Tracheos [place] tube is in good position and is new from previous examination. Subop timal inspiration. Dependent changes. No acute infiltrates, effusion or congestion. Cardiomegaly. IMPRESSION: No acut e infiltrates, effusion or congestion. Dependent changes. Barryi lisa Signed by Blayne Renee on 09/01/2019 at 1403 Reported and signed by: Quintin Renee M.D. CC: Leila Beck MD Technologist: SUYAPA Gandhi(R) Trnscrd Date/Time/By: 09/01/2019 (8068) : By: [email or web address] Orig Print D/T: S: 09/01/2019 (9720) PAGE 1 Signed Report BASIC METABOLIC [id number] 14:01:00* Test Item Value Reference Range Interpretation Comments SODIUM (test code = NA) 142 mmol/L 136-145 N POTASSIUM (test code = K) 3.9 mmol/L 3.5-5.1 N CHLORIDE (test code = CL) 107.0 mmol/L 98-107 N CARBON DIOXIDE (test code = CO2) 28.0 mmol/L 21-32 N ANION GAP (test code = GAP) 10.9 10-20 N GLUCOSE (test code = GLU) 96 mg/dL 74-106 N BLOOD UREA NITROGEN (test code = BUN) 14 mg/dL 7-18 N GLOMERULAR FILTRATION RATE (test code = GFR) > 60 mL/min >=60 Estimated GFR by using Modified MDRD formula.Chronic kidney disease is defined as either kidney damageor GFR <60 mL/min/1.73 m2 for >3 months. CREATININE (test code = CREAT) 0.30 mg/dL 0.55-1.02 L Note change in reference range due to change in reagent. BUN/CREATININE RATIO (test code = BUN/CREA) 46.7 10-20 H CALCIUM (test code = CA) 9.4 mg/dL 8.5-10.1 N COVID 19 Asymptomatic IH [id number] 13:53:00* Test Item Value Reference Range Interpretation Comments COVID 19 Asymptomatic IH AG (test code = COVNONPUIAG) NEGATIVE PROTHROMBIN [id number] 13:47:00* Test Item Value Reference Range Interpretation Comments PROTHROMBIN TIME PATIENT (test code = PTP) 13.2 seconds 9.0-14.0 N INTERNATIONAL NORMAL RATIO (test code = INR) 1.1 0.8-1.2 N The therapeutic range for oral anticoagulant therapy formost indications is an international normalized ratio (INR)of between 2.0 and 3.0. The recommended therapeutic INRrange for various clinical situations is listed below: Clinical Situation INR range Pulmonary e mbolism treatment (2.0-3.0)Venous thrombosis treatmentVenous thrombosis prophylaxis (high risk surgery)Prevention of systemic embolism from: Acute myocardial infarction Valvular heart disease Atrial fibrillation Mechanical prosthetic heart valves (2.5-3.5) IS PATIENT ON ANTICOAGULANTS? NTHROMBOPLASTIN TIME [id number] 13:47:00* Test Item Value Reference Range Interpretation Comments THROMBOPLASTIN TIME PARTIAL (test code = PTT) 34.2 seconds 23.0-37. 0 N IS PATIENT ON ANTICOAGULANTS? NCBC W/AUTO [id number] 13:37:00* Test Item Value Reference Range Interpretation Comments WHITE BLOOD CELL (test code = WBC) 8.6 K/mm3 4.5-12.5 N RED BLOOD CELL (test code = RBC) 4.02 mill/mm3 3.7-5.2 N HEMOGLOBIN (test code = HGB) 9.4 gram/dL 11.5-15.5 L HEMATOCRIT (test code = HCT) 31.8 % 36.0-46.0 L MEAN CELL VOLUME (test code = MCV) 79.1 fL 80-98 L MEAN CELL HGB (test code = MCH) 23.4 picogram 27.0-33.0 L MEAN CELL HGB CONCETRATION (test code = MCHC) 29.6 gram/dL 33.0-36. 0 L RED CELL DISTRIBUTION WIDTH (test code = RDW) 17.7 % 11.6-16. 2 H RED CELL DISTRIBUTION WIDTH SD (test code = RDW-SD) 50.4 fL 37 .0-51.0 N PLATELET COUNT (test code = PLT) 655 K/mm3 150-450 H MEAN PLATELET VOLUME (test code = MPV) 9.4 fL 6.7-11.0 N NEUTROPHIL % (test code = NT%) 75.6 % 39.0-69.0 H IMMATURE GRANULOCYTE % (test code = IG%) 0.5 % 0.0-5.0 N LYMPHOCYTE % (test code = LY%) 16.8 % 25.0-55.0 L MONOCYTE % (test code = MO%) 5.9 % 0.0-10.0 N EOSINOPHIL % (test code = EO%) 0.9 % 0.0-5.0 N BASOPHIL % (test code = BA%) 0.3 % 0.0-1.0 N NUCLEATED RBC % (test code = NRBC%) 0.0 % 0-0 N NEUTROPHIL # (test code = NT#) 6.48 K/mm3 1.8-7.7 N IMMATURE GRANULOCYTE # (test code = IG#) 0.04 x10 3/uL 0-0.03 H LYMPHOCYTE # (test code = LY#) 1.44 K/mm3 1.0-5.0 N MONOCYTE # (test code = MO#) 0.51 K/mm3 0-0.8 N EOSINOPHIL # (test code = EO#) 0.08 K/mm3 0.0-0.5 N BASOPHIL # (test code = BA#) 0.03 K/mm3 0.0-0.2 N NUCLEATED RBC # (test code = NRBC#) 0.00 K/mm3 0.0-0.1 N MANUAL DIFF REQUIRED (test code = MDIFF) NO, ONLY SCAN NEEDED DIFFERENTIAL [id number] 13:37:00* Test Item Value Reference Range Interpretation Comments STAIN ACCEPTABILITY (test code = STN ACCEPTABLE) CABOT RINGS (test code = CAB) MORPHOLOGY COMMENT (test code = MOC) PLATELET ESTIMATE (test code = PLTEST) PLATELET MORPHOLOGY (test code = PLTMORPH) CBC W/AUTO [id number] 13:37:00* Test Item Value Reference Range Interpretation Comments WHITE BLOOD CELL (test code = WBC) 8.6 K/mm3 4.5-12.5 N RED BLOOD CELL (test code = RBC) 4.02 mill/mm3 3.7-5.2 N HEMOGLOBIN (test code = HGB) 9.4 gram/dL 11.5-15.5 L HEMATOCRIT (test code = HCT) 31.8 % 36.0-46.0 L MEAN CELL VOLUME (test code = MCV) 79.1 fL 80-98 L MEAN CELL HGB (test code = MCH) 23.4 picogram 27.0-33.0 L MEAN CELL HGB CONCETRATION (test code = MCHC) 29.6 gram/dL 33.0-36. 0 L RED CELL DISTRIBUTION WIDTH (test code = RDW) 17.7 % 11.6-16. 2 H RED CELL DISTRIBUTION WIDTH SD (test code = RDW-SD) 50.4 fL 37 .0-51.0 N PLATELET COUNT (test code = PLT) 655 K/mm3 150-450 H MEAN PLATELET VOLUME (test code = MPV) 9.4 fL 6.7-11.0 N NEUTROPHIL % (test code = NT%) 75.6 % 39.0-69.0 H IMMATURE GRANULOCYTE % (test code = IG%) 0.5 % 0.0-5.0 N LYMPHOCYTE % (test code = LY%) 16.8 % 25.0-55.0 L MONOCYTE % (test code = MO%) 5.9 % 0.0-10.0 N EOSINOPHIL % (test code = EO%) 0.9 % 0.0-5.0 N BASOPHIL % (test code = BA%) 0.3 % 0.0-1.0 N NUCLEATED RBC % (test code = NRBC%) 0.0 % 0-0 N NEUTROPHIL # (test code = NT#) 6.48 K/mm3 1.8-7.7 N IMMATURE GRANULOCYTE # (test code = IG#) 0.04 x10 3/uL 0-0.03 H LYMPHOCYTE # (test code = LY#) 1.44 K/mm3 1.0-5.0 N MONOCYTE # (test code = MO#) 0.51 K/mm3 0-0.8 N EOSINOPHIL # (test code = EO#) 0.08 K/mm3 0.0-0.5 N BASOPHIL # (test code = BA#) 0.03 K/mm3 0.0-0.2 N NUCLEATED RBC # (test code = NRBC#) 0.00 K/mm3 0.0-0.1 N MANUAL DIFF REQUIRED (test code = MDIFF) NO, ONLY SCAN NEEDED DIFFERENTIAL [id number] 13:37:00* Test Item Value Reference Range Interpretation Comments STAIN ACCEPTABILITY (test code = STN ACCEPTABLE) CABOT RINGS (test code = CAB) MORPHOLOGY COMMENT (test code = MOC) PLATELET ESTIMATE (test code = PLTEST) PLATELET MORPHOLOGY (test code = PLTMORPH) CBC W/AUTO [id number] 13:37:00* Test Item Value Reference Range Interpretation Comments WHITE BLOOD CELL (test code = WBC) 8.6 K/mm3 4.5-12.5 N RED BLOOD CELL (test code = RBC) 4.02 mill/mm3 3.7-5.2 N HEMOGLOBIN (test code = HGB) 9.4 gram/dL 11.5-15.5 L HEMATOCRIT (test code = HCT) 31.8 % 36.0-46.0 L MEAN CELL VOLUME (test code = MCV) 79.1 fL 80-98 L MEAN CELL HGB (test code = MCH) 23.4 picogram 27.0-33.0 L MEAN CELL HGB CONCETRATION (test code = MCHC) 29.6 gram/dL 33.0-36. 0 L RED CELL DISTRIBUTION WIDTH (test code = RDW) 17.7 % 11.6-16. 2 H RED CELL DISTRIBUTION WIDTH SD (test code = RDW-SD) 50.4 fL 37 .0-51.0 N PLATELET COUNT (test code = PLT) 655 K/mm3 150-450 H MEAN PLATELET VOLUME (test code = MPV) 9.4 fL 6.7-11.0 N NEUTROPHIL % (test code = NT%) 75.6 % 39.0-69.0 H IMMATURE GRANULOCYTE % (test code = IG%) 0.5 % 0.0-5.0 N LYMPHOCYTE % (test code = LY%) 16.8 % 25.0-55.0 L MONOCYTE % (test code = MO%) 5.9 % 0.0-10.0 N EOSINOPHIL % (test code = EO%) 0.9 % 0.0-5.0 N BASOPHIL % (test code = BA%) 0.3 % 0.0-1.0 N NUCLEATED RBC % (test code = NRBC%) 0.0 % 0-0 N NEUTROPHIL # (test code = NT#) 6.48 K/mm3 1.8-7.7 N IMMATURE GRANULOCYTE # (test code = IG#) 0.04 x10 3/uL 0-0.03 H LYMPHOCYTE # (test code = LY#) 1.44 K/mm3 1.0-5.0 N MONOCYTE # (test code = MO#) 0.51 K/mm3 0-0.8 N EOSINOPHIL # (test code = EO#) 0.08 K/mm3 0.0-0.5 N BASOPHIL # (test code = BA#) 0.03 K/mm3 0.0-0.2 N NUCLEATED RBC # (test code = NRBC#) 0.00 K/mm3 0.0-0.1 N MANUAL DIFF REQUIRED (test code = MDIFF) NO, ONLY SCAN NEEDED DIFFERENTIAL [id number] 13:37:00* Test Item Value Reference Range Interpretation Comments STAIN ACCEPTABILITY (test code = STN ACCEPTABLE) MORPHOLOGY COMMENT (test code = MOC) PLATELET ESTIMATE (test code = PLTEST) PLATELET MORPHOLOGY (test code = PLTMORPH) CBC W/AUTO [id number] 13:37:00* Test Item Value Reference Range Interpretation Comments WHITE BLOOD CELL (test code = WBC) 8.6 K/mm3 4.5-12.5 N RED BLOOD CELL (test code = RBC) 4.02 mill/mm3 3.7-5.2 N HEMOGLOBIN (test code = HGB) 9.4 gram/dL 11.5-15.5 L HEMATOCRIT (test code = HCT) 31.8 % 36.0-46.0 L MEAN CELL VOLUME (test code = MCV) 79.1 fL 80-98 L MEAN CELL HGB (test code = MCH) 23.4 picogram 27.0-33.0 L MEAN CELL HGB CONCETRATION (test code = MCHC) 29.6 gram/dL 33.0-36. 0 L RED CELL DISTRIBUTION WIDTH (test code = RDW) 17.7 % 11.6-16. 2 H RED CELL DISTRIBUTION WIDTH SD (test code = RDW-SD) 50.4 fL 37 .0-51.0 N PLATELET COUNT (test code = PLT) 655 K/mm3 150-450 H MEAN PLATELET VOLUME (test code = MPV) 9.4 fL 6.7-11.0 N NEUTROPHIL % (test code = NT%) 75.6 % 39.0-69.0 H IMMATURE GRANULOCYTE % (test code = IG%) 0.5 % 0.0-5.0 N LYMPHOCYTE % (test code = LY%) 16.8 % 25.0-55.0 L MONOCYTE % (test code = MO%) 5.9 % 0.0-10.0 N EOSINOPHIL % (test code = EO%) 0.9 % 0.0-5.0 N BASOPHIL % (test code = BA%) 0.3 % 0.0-1.0 N NUCLEATED RBC % (test code = NRBC%) 0.0 % 0-0 N NEUTROPHIL # (test code = NT#) 6.48 K/mm3 1.8-7.7 N IMMATURE GRANULOCYTE # (test code = IG#) 0.04 x10 3/uL 0-0.03 H LYMPHOCYTE # (test code = LY#) 1.44 K/mm3 1.0-5.0 N MONOCYTE # (test code = MO#) 0.51 K/mm3 0-0.8 N EOSINOPHIL # (test code = EO#) 0.08 K/mm3 0.0-0.5 N BASOPHIL # (test code = BA#) 0.03 K/mm3 0.0-0.2 N NUCLEATED RBC # (test code = NRBC#) 0.00 K/mm3 0.0-0.1 N MANUAL DIFF REQUIRED (test code = MDIFF) NO, ONLY SCAN NEEDED DIFFERENTIAL [id number] 13:37:00* Test Item Value Reference Range Interpretation Comments STAIN ACCEPTABILITY (test code = STN ACCEPTABLE) CABOT RINGS (test code = CAB) MORPHOLOGY COMMENT (test code = MOC) PLATELET ESTIMATE (test code = PLTEST) PLATELET MORPHOLOGY (test code = PLTMORPH) ABDOMEN-1VIEW (KUB)2019-08-19 13:14:00 [place] [address] Patient Name: JENNIFER FIGUEROA MR #: [id number] : 1960 Age/Sex: 58/F Req #: [id number] Adm Physician: Ordered by: ALYSSA ZAMUDIO MD Report #: [id number] Location: ER Room/Bed: Procedure: [id number] DX/ABDOMEN-1VIE W ([facility]) Exam Date: 08/19/19 Exam Time: 1257 REPORT STATUS: Signed Exam: Limited a bdominal film Clinical History: G-tube placement Comparison: [facility] 2019 DISCUSSION: Exam markedly limited by motion artifact. Contrast in jected through a percutaneous gastrostomy tube opacifies the stomach. Residual contrast is noted in the large bowel and likely distal small bowel. IVC sla ter is unchanged. Lung bases are grossly clear. IMPRESSION: 1. Contr ast injection through the percutaneous gastrostomy tube opacifies the stomach. The staff physician below has personally reviewed this exam on the date of dictation. Signed by: Dr. Andrew Thornton M.D. on 2019 1:34 PM Dictated By: ANDREW THORNTON MD [id number] Transcribed By: ANÍBAL on 08/19/19 1334 COPY TO: ALYSSA ZAMUDIO MD ABDOMEN-1VIEW ([facility])2019-08-17 23:25:00 [place] [address] Patient Name: JENNIFER FIGUEROA MR #: [id number] : 1960 Age/Sex: 58/F Req #: [id number] Adm Physician: Ordered by: NAIDA VENTURA DO Report #: [id number] Location: ER Room/Bed: Procedure: [id number] DX/ABDOMEN-1 VIEW ([facility]) Exam Date: 08/17/19 Exam Time: 2244 REPORT STATUS: Signed EXAM: Abdomen R adiograph 1 View(s) INDICATION: PEG TUBE PLACEMENT [id number] COMPARISON: None FINDINGS: Contrast injected through an existing p ercutaneous gastrostomy tube opacifies the stomach. The bowel gas pattern is n onspecific. An IVC filter is noted. No acute osseous abnormality. IMPR ESSION: Contrast injection through the gastrostomy tube opacifies the stoma ch. Signed by: Alpesh Verma MD on 08/17/2019 11:25 PM Dictated By: ALPESH VERMA MD 24 Transcribed By: ANÍBAL on 08/17/192324 COPY TO: NAIDA VENTURA DO PROTHROMBIN [id number] 09:32:00* Test Item Value Reference Range Interpretation Comments PROTHROMBIN TIME PATIENT (test code = PTP) 13.7 SECONDS 9.3-12.9 H INTERNATIONAL NORMAL RATIO (test code = INR) 1.3 0.8-1.2 H TARGET INR BY INDICATION Indication INR1. Prophylaxis of venous thrombosis 2.0 - 3.0 (orthopedic surgery), Prophylaxis of venous thrombosis (other than high-risk surgery), Treatment of Deep Vein Thrombosis/Pulmonary Embolism, Prevention of systemic embolism - Tissue heart valves, Acute Myocardial Infarction (to prevent systemic embolism), Valvular heart disease, Atrial Fibrillation, Bileaflet mechanical valve in aortic position.2. Mechanical prosthetic valves (high risk), 2.5 - 3.5 Presence of Lupus Anticoagulant or Antiphospholipid Antibodies, Prevention of systemic embolism - Acute Myocardial Infarction (to prevent recurrent infarct). THROMBOPLASTIN TIME [id number] 09:32:00* Test Item Value Reference Range Interpretation Comments THROMBOPLASTIN TIME PARTIAL (test code = PTT) 32.1 Seconds 25.0-39. 5 N Therapeutic Range: 50.4 - 88.3 Seconds Effective 05/30/2018 T4 [id number] 08:27:00* Test Item Value Reference Range Interpretation Comments T4 FREE (test code = T4F) 1.2 ng/dL 0.77-1.61 N THYROID STIMULATING [id number] 08:27:00* Test Item Value Reference Range Interpretation Comments THYROID STIMULATING HORMONE (test code = TSH) 0.28 0.42-5.4 7 L Results in florentino- International Units/mL BASIC METABOLIC [id number] 08:19:00* Test Item Value Reference Range Interpretation Comments SODIUM (test code = NA) 149 mEq/L 134-147 H POTASSIUM (test code = K) 4.5 mEq/L 3.4-5.0 N CHLORIDE (test code = CL) 116 mEq/L 100-108 H CARBON DIOXIDE (test code = CO2) 26 mEq/L 21-33 N ANION GAP (test code = GAP) 12 0-20 N GLUCOSE (test code = GLU) 108 mg/dL 70-110 N BLOOD UREA NITROGEN (test code = BUN) 15 mg/dL 7-18 N GLOMERULAR FILTRATION RATE (test code = GFR) 227.7 90-95 H Units of measure = ml/min/1.73 m2 CREATININE (test code = CREAT) 0.3 mg/dL 0.6-1.3 L CALCIUM (test code = CA) 9.2 mg/dL 8.0-10.5 N [id number] 08:19:00* Test Item Value Reference Range Interpretation Comments TROPONIN-I (test code = TROPI) < 0.015 ng/mL 0.000-0.045 N Negative: <= 0.045 Positive: >= 0.046 Correlation with serial results, other cardiac markers andclinical findings is necessary to determine the clinicalsignificance of this result. Results using different methodologies should not be comparedto one another as quantitative results may vary by method. BASIC METABOLIC [id number] 08:18:00* Test Item Value Reference Range Interpretation Comments SODIUM (test code = NA) mEq/L 134-147 POTASSIUM (test code = K) mEq/L 3.4-5.0 CHLORIDE (test code = CL) mEq/L 100-108 CARBON DIOXIDE (test code = CO2) mEq/L 21-33 ANION GAP (test code = GAP) 0-20 GLUCOSE (test code = GLU) mg/dL 70-110 BLOOD UREA NITROGEN (test code = BUN) mg/dL 7-18 GLOMERULAR FILTRATION RATE (test code = GFR) 90-95 CREATININE (test code = CREAT) mg/dL 0.6-1.3 CALCIUM (test code = CA) mg/dL 8.0-10.5 [id number] 08:18:00* Test Item Value Reference Range Interpretation Comments TROPONIN-I (test code = TROPI) < 0.015 ng/mL 0.000-0.045 N Negative: <= 0.045 Positive: >= 0.046 Correlation with serial results, other cardiac markers andclinical findings is necessary to determine the clinicalsignificance of this result. Results using different methodologies should not be comparedto one another as quantitative results may vary by method. LACTIC [id number] 08:17:00* Test Item Value Reference Range Interpretation Comments LACTIC ACID (test code = LACT) 1.6 mmol/L 0.4-1.9 N - XR CHEST 1 [id number] 07:56:00 FAX: Kenny Linares MD [phone] [place]: St: REG Name: JENNIFER FRANCISCO : [birth year] Age/S: 58/F [address] [place] [address] Unit #: [id number] Loc: [place] [address] Phys: Kenny Godwin MD Acct: [id number] Dis Date: Status: REG ER PHONE #: [phone] Exam Date: 05/30/2019 0750 FAX #: [phone] Reason: tube pulled back, evaluate ET tube position EXAMS: CPT CODE: [id number] XR CHEST 1 V 91621 Chest single view 05/30/2019 0745 h ours HISTORY: Repositioning of endotracheal tube Com parison is made to 05/30/2019 0712 hours FINDINGS: Gastric tube is stable. The endotracheal tube tip is now 1.2 cm above the tony. Left b ase atelectasis/infiltrate has decreased. No significant right pleural ef fusion is noted. Small left pleural effusion is noted. Mild cardiomegaly is unchanged. No interstitial edema is present. Mild atelectasis in the right upper lung is noted. IMPRESSION: 1. Improv ed positioning of endotracheal tube. 2. Decreased left base atelectasis /infiltrate. SL: [id number] Electronica lly Signed by Blayne Miranda on 05/30/2019 a t 0756 Reported and signed by: Alpesh Miranda M.D. CC: Kenny Godwin MD Technologist: RT Irena(R) Trnscrd Date/Time/By: 05/30/2019 (0756) : By: [email or web address] Orig Print D/ T: S: 05/30/2019 (0759) PAGE 1 Si gned Report - CT HEAD/BRAIN W/O [id number] 07:55:00 Name: JENNIFER FIGUEROA : 1960 Age/S: 58 / F [address] [place] [address] Unit #: [id number] Loc: [place] [address] Phys: Kenny Godwin MD Acct: [id number] Dis Date: Status: REG ER PHONE #: [phone] Exam Date: 05/30/2019 0788 FAX #: [phone] Reason: acute altered mental status, evaluate for hemor EXAMS: CPT CODE: [id number] CT HEAD/BRAIN W/O CONT 31068 CT head without contrast 05/30/2019 HISTORY: Altered mental status. PROCEDURE: Multiple axial images from the skull base to the skull vertex were obtained without contrast. Coronal and sagittal reconstructed images were performed CT imaging performed at this location utilizes radiation dose optimization techniques which include one or more of the following: -Automated exposure control -Adjustment of the mA and/or kV according to patient size -Use of iterative reconstruction technique CT Radiation Dose DLP 373.25 mGy-cm Comparison is made to 11/24/2016. FINDINGS: Treated AVM material in the right posterior frontal and parietal regions results in extensive scatter artifact. There is new moderate hydrocephalus. Hemorrhage within the right lateral ventricle is new. Hemorrhage extends through the right foramen of Luschka and into the 4th ventricle. Decreased density in the periventricular white matter is compatible with transependymal migration of CHF. There is no parenchymal hemorrhage identified. There is no acute infarct identified. The visualized left mastoid air cells are clear. Minimal right mastoid fluid is noted. There is no paranasal sinus air-fluid level. Probable coiling of a distal left ICA aneurysm is noted. IMPRESSION: 1. Acute hemorrhage within the right lateral and 4th ventricles. Associated moderate hydrocephalus with transependymal migration of CHF. 2. No parenchymal hemorrhage. No acute infarct. 3. 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 Coiling of distal left ICA aneurysm. Findings were discussed with Dr. Godwin by Dr. Miranda at 7:52 AM on 05/30/2019. SL: [id number] PAGE 1 Signed Report (CONTINUED) Name: JENNIFER FIGUEROA [facility] : 1960 Age/S: 58 / F [address] [place] [address] Unit #: [id number] Loc: [place] [address] Phys: Kenny Godwin MD Acct: [id number] Dis Date: Status: REG ER PHONE #: [phone] Exam Date: 05/30/2019 0756 FAX #: [phone] Reason: acute altered mental status, evaluate for hemor EXAMS: CPT CODE: [id number] CT HEAD/BRAIN W/O CONT 67467 <Continued> at 0755 Reported and signed by: Alpesh Miranda M.D. CC: Kenny Godwin MD Technologist:Maurizio Jackson, RT(R)(CT) CTDI: DLP: Trnscb Date/Time: 05/30/2019 (075) [id number] Orig Print D/T: S: 05/30/2019 (0758) PAGE 2 Signed Report CBC W/O [id number] 07:54:00* Test Item Value Reference Range Interpretation Comments WHITE BLOOD CELL (test code = WBC) 7.78 x10 3/uL 4.5-11.0 N RED BLOOD CELL (test code = RBC) 3.94 x10 6/uL 3.54-5.02 N HEMOGLOBIN (test code = HGB) 11.5 g/dL 11.0-15.0 N HEMATOCRIT (test code = HCT) 38.1 % 33.0-45.0 N MEAN CELL VOLUME (test code = MCV) 96.7 fL 81.0-99.0 N MEAN CELL HGB (test code = MCH) 29.2 pg 27.0-33.0 N MEAN CELL HGB CONCETRATION (test code = MCHC) 30.2 g/dL 33.0-37. 0 L RED CELL DISTRIBUTION WIDTH CV (test code = RDW) 16.3 % 11.5- 14.5 H RED CELL DISTRIBUTION WIDTH SD (test code = RDW-SD) 58.2 fL 37 .0-54.0 H PLATELET COUNT (test code = PLT) 210 x10 3/uL 150-400 N MEAN PLATELET VOLUME (test code = MPV) 12.1 fL 7.0-9.0 H - XR CHEST 1 [id number] 07:25:00 FAX: Kenny Linares MD [phone] [place]: St: PRE [facility] [birth year] Age/S: 58/F [address] [place] [address] Blvd Unit #: [id number] Loc: [place] [address] Phys: Kenny Godwin MD Acct: [id number] Dis Date: Status: PRE ER PHONE #: [phone] Exam Date: 05/30/2019718 FAX #: [phone] Reason: stroke EXAMS: CPT CODE: [id number] XR CHEST 1 V 73917 Chest single view 05/30/2019 HISTORY: Stroke. Unresponsiveness. Comparison is made to 11/26/2016 FINDINGS: Right mainstem bronchus intubation is present . Endotracheal tube needs to be retracted 6-7 cm. Associated hyperinflat ion of the right lung is noted. Associated left base atelectasis/infiltra te is noted. There is mild cardiomegaly. Aorta is within normal limits. Gastric tube tip is in the fundus of the stomach. IMPRESS ION: 1. Right mainstem bronchus intubation. 2. Left base atele ctasis/infiltrate. 3. Mild cardiomegaly. No interstitial edema.. SL: [id number] at 0772 Reported and signed by: Alpesh Miranda M.D. CC: Kenny Godwin MD Techno logist: Alexey Lobato, RT(R); Yue Tamez RT(R) Trnscrd Date/Time /By: 05/30/2019 (0768) : By: [email or web address] Orig Print D/T: S: 05/30/2019 ( 7446) PAGE 1 Signed Report
--- NOTE | 2019-10-26 23:20 | Emergency Department Note ---
History of Present Illnes History of Present Illness Chief Complaint: General Medicine Complaints History of Present Illness This is a 59 year old female Chief Complaint Comment 59 Y/O FEMALE PT PRESENTS TO THE ER VIA EMS FROM MED RESORT C/O GTUBE BEING DISLODGED. No other complaints. 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 Arrival Mode: [facility] EMS Health Analyst Required: No Onset (how long ago): day(s) (1) Location: Stomach Quality: PEG tube disloged Radiation: Reports non-radiation Severity: mild Onset quality: sudden Duration (how long): day(s) (1) Timing of current episode: constant Progression: unchanged Chronicity: recurrent Context: Denies recent illness, Denies recent surgery Relieving factors: none Exacerbating factors: none Associated symptoms: Reports denies other symptoms Treatments prior to arrival: none Past Medical/Family History Physician Review I have reviewed the patient's past medical and family history. Any updates have been documented here. Past Medical History Recent Fever: No Clinical Suspicion of Infectio: No New/Unexplained Change in Ment: No Past Medical History: Seizure Disorder Other Medical History: AVM. HYDROCEPHALUS,RESPIRATORY FAILURE, EPILEPSY, CEREBRAL INFARCT,TACHYCARDIA, PEG TUBE, PRESSURE ULCER SACRAL, TRACHEOSTOMY Other Surgery: TRACH COLLAR Review of Systems Review of Systems Constitutional: Reports no symptoms EENTM: Reports no symptoms Cardiovascular: Reports no symptoms Respiratory: Reports no symptoms Gastrointestinal: Reports no symptoms Genitourinary: Reports no symptoms Musculoskeletal: Reports no symptoms Integumentary: Reports no symptoms Neurological: Reports no symptoms Psychological: Reports no symptoms Endocrine: Reports no symptoms Hematological/Lymphatic: Reports no symptoms Physical Exam Related Data Allergies: Coded Allergies: No Known Allergies (Unverified , 10/24/19) Triage Vital Signs Vital Signs Date Time Temp Pulse Resp B/P (MAP) Pulse Ox O2 Delivery O2 Flow Rate FiO2 10/26/19 22:13 98.2 100 20 164/82 100 Trach Collar 8.0 Vital signs reviewed: Yes Physical Exam CONSTITUTIONAL Constitutional: Present well-developed, Present well-nourished HENT HENT: Present atraumatic, Present oropharynx clear/moist, Present nose normal HENT L/R: Present left ext ear normal, Present right ext ear normal EYES Eyes: Reports PERRL, Reports conjunctivae normal NECK Neck: Present ROM normal PULMONARY Pulmonary: Present effort normal, Present breath sounds normal, Present other (Tach in place) CARDIOVASCULAR Cardiovascular: Present regular rhythm, Present heart sounds normal, Present capillary refill normal, Present normal rate GASTROINTESTINAL Abdominal: Present soft, Present nontender, Present bowel sounds normal GENITOURINARY Genitourinary: Present exam deferred SKIN Skin: Present warm, Present dry MUSCULOSKELETAL Musculoskeletal: Absent edema, Absent deformity, Absent tenderness NEUROLOGICAL Neurological: Present no gross motor or sensory deficits, Present other (Hand held in flexion (baseline)) PSYCHOLOGICAL Psychological: Present other (Non verbal at baseline) Procedures Procedures Procedure: PEG replacement. 16fr PEG tube replaced, 5mL NS placed in balloon with aspiration of stomach contents confirming placement. Placed with out difficulty or resistance. Assessment & Plan Medical Decision Making MDM 59 y.o F presents for PEG tube dislodgement. PEG tube replaced as noted in procedure note. Patient is appropriate for DC Assessment & Plan Final Impression: (1) Gastrojejunostomy tube dislodgement Depart Disposition: HOME, SELF-CARE Last Vital Signs Date Time Temp Pulse Resp B/P (MAP) Pulse Ox O2 Delivery O2 Flow Rate FiO2 10/26/19 22:13 98.2 100 20 164/82 100 Trach Collar 8.0 BIANCA MEDEIROS MD Oct 26, 2019 23:20
== END 2019-10-26 22:35 | disposition home or self-care (01) ==
LOC: ER 22:33
DX: Z43.1 Encounter for attention to gastrostomy (principal); G40.909 Epilepsy, unspecified, not intractable, without status epilepticus
CPT/HCPCS: 43762; 99283

== ENCOUNTER 2020-03-07 17:07 | Inpatient (IN) | payer MEDICARE ==
[~2020-03-07] VITALS: Ht 165.1 cm; Wt 62.6 kg
[2020-03-07] MEDS ORDERED: DIATRIZOATE MEGL/DIATRIZOA SOD 30 ML BTL PO ONE (18:08)
[2020-03-07] MEDS ORDERED: DEXTROSE 5%/0.9% SOD CHL 1,000 ML IV ONE ×2 (21:30→22:30)
[2020-03-07 21:49] LABS: BASOPHILS % 0.1 % (0.0-1.0); EOSINOPHILS # (AUTO) 0.1 (0.0-0.4); EOSINOPHILS % 0.8 % (0.0-6.0); HEMATOCRIT 35.6 % (34.2-44.1); HEMOGLOBIN 10.7 g/dL (12.0-16.0); LYMPHOCYTES # (AUTO) 1.6 (1.0-3.2); LYMPHOCYTES % 11.3 % (18.0-39.1); MEAN CORPUSCULAR HEMOGLOBIN 23.3 pg (28-32); MEAN CORPUSCULAR HGB CONC 30.1 g/dL (31-35); MEAN CORPUSCULAR VOLUME 77.4 fL (81-99); MONOCYTES # (AUTO) 0.6 (0.2-0.8); MONOCYTES % 4.3 % (4.4-11.3); NEUTROPHILS # (AUTO) 11.9 (2.1-6.9); NEUTROPHILS % 83.2 % (38.7-80.0); PLATELET COUNT 383 x10e3/uL (140-360); RED CELL DISTRIBUTION WIDTH 20.2 % (11.7-14.4)
[2020-03-07 22:06] LABS: ANION GAP 16.9 mmol/L (8-16); BLOOD UREA NITROGEN 7 mg/dL (7-26); BUN/CREATININE RATIO 13 (6-25); CALCIUM 9.5 mg/dL (8.4-10.2); CARBON DIOXIDE 25 mmol/L (22-29); CHLORIDE 106 mmol/L (98-107); CREATININE, SERUM 0.54 mg/dL (0.57-1.11); EST GLOMERULAR FILTRATION RATE > 60 ML/MIN (60-); GLUCOSE 98 mg/dL (74-118); POTASSIUM 3.9 mmol/L (3.5-5.1); SODIUM 144 mmol/L (136-145)
[2020-03-07 22:08] LABS: CLARITY,URINE SL CLOUDY (CLEAR); COLOR,URINE YELLOW (YELLOW); KETONES,URINE 2+ (NEGATIVE); LEUKOCYTE ESTERASE ,URINE NEGATIVE (NEGATIVE); NITRITE,URINE POSITIVE (NEGATIVE); PROTEIN,URINE DIPSTICK NEGATIVE (NEGATIVE); URINE UROBILINOGEN 1 mg/dL (0.2 - 1)
[2020-03-07 22:15] LABS: BACTERIA,URINE MANY /HPF; EPITHELIAL CELLS,URINE MODERATE /LPF
[2020-03-07] MEDS ORDERED: LACTATED RINGER'S 1,000 ML INJ ONE (22:30)
[2020-03-07] MEDS ORDERED: CEFTRIAXONE SOD 1 GM/NS 50 ML 50 ML IV ONE (22:30)
[2020-03-07] MEDS ORDERED: LACTATED RINGER S INJ ONE (22:30)
[2020-03-08] VITALS (11 sets, daily range): BP systolic 93–154; BP diastolic 57–86
[2020-03-08] MEDS ORDERED: ALBUTEROL/IPRATROPIUM 3 ML NEB NEB PRN (00:30)
[2020-03-08] MEDS ORDERED: ACETAMINOPHEN 325 MG TAB PO PRN (00:30)
[2020-03-08] MEDS ORDERED: HYDROCODONE/APAP 5MG-325MG TAB PO PRN (00:30)
[2020-03-08] MEDS ORDERED: DIPHENHYDRAMINE HCL 25 MG CAP PO PRN (00:30)
[2020-03-08] MEDS ORDERED: MELATONIN 5 MG TABLET PO PRN (00:30)
[2020-03-08] MEDS ORDERED: SIMETHICONE 80 MG CHEW PO PRN (00:30)
[2020-03-08] MEDS ORDERED: LIDOCAINE 4% PATCH TP PRN (00:30)
[2020-03-08] MEDS ORDERED: DOCUSATE SODIUM 100 MG CAP PO PRN (00:30)
[2020-03-08] MEDS ORDERED: HYDRALAZINE HCL 20 MG/ML VIAL IV PRN (00:30)
[2020-03-08] MEDS ORDERED: CHLORASEPTIC SPRAY 177 ML BTL MM PRN (00:30)
[2020-03-08] MEDS ORDERED: DEXTROSE 50% SYRINGE 50 ML IV PRN (00:30)
[2020-03-08] MEDS ORDERED: POLYETHYLENE GLYCOL 3350 17 GM PACK PO PRN (00:30)
[2020-03-08] MEDS ORDERED: GUAIFENESIN/CODEINE 10 ML CUP PO PRN (00:30)
[2020-03-08] MEDS ORDERED: ONDANSETRON HCL INJ 2MG/ML 2ML 2 MG/ML VIAL IV PRN (00:30)
[2020-03-08] MEDS: CEFEPIME 1GM/NS 0.9% 50 ML 50 ML IV SCH ×2 (02:40→12:43)
[2020-03-08] MEDS ORDERED: METOPROLOL TART25 MG PEG (05:29)
[2020-03-08] MEDS ORDERED: ACETAMINOPHEN325 M1 PEG (05:29)
[2020-03-08] MEDS ORDERED: LEVETIRACETAM500 MG PEG (05:29)
[2020-03-08] MEDS ORDERED: METOCLOPRAMIDE10 MG PEG (05:29)
[2020-03-08] MEDS ORDERED: ALBUTEROL0.63 MG/3 NEB (05:29)
[2020-03-08] MEDS ORDERED: MULTI-VITAMIN1 EACH PEG (05:29)
[2020-03-08] MEDS ORDERED: FAMOTIDINE20 MG PEG (05:29)
[2020-03-08] MEDS ORDERED: ATROVENT HFA12.9 GM INH (05:29)
[2020-03-08 05:33] LABS: BASOPHILS % 0.2 % (0.0-1.0); EOSINOPHILS # (AUTO) 0.1 (0.0-0.4); EOSINOPHILS % 0.6 % (0.0-6.0); HEMATOCRIT 32.9 % (34.2-44.1); MEAN CORPUSCULAR HEMOGLOBIN 23.4 pg (28-32); MEAN CORPUSCULAR HGB CONC 30.4 g/dL (31-35); MONOCYTES # (AUTO) 0.5 (0.2-0.8); MONOCYTES % 5.1 % (4.4-11.3); NEUTROPHILS % 83.8 % (38.7-80.0); PLATELET COUNT 233 x10e3/uL (140-360); RED BLOOD COUNT 4.27 x10e6/uL (3.6-5.1); RED CELL DISTRIBUTION WIDTH 19.5 % (11.7-14.4)
[2020-03-08 05:55] LABS: ALANINE AMINOTRANSFERASE 32 IU/L (0-55); ALBUMIN 2.8 g/dL (3.5-5.0); ALBUMIN/GLOBULIN RATIO 0.7 (0.8-2.0); ALKALINE PHOSPHATASE 103 IU/L (40-150); ANION GAP 14.6 mmol/L (8-16); BLOOD UREA NITROGEN 6 mg/dL (7-26); BUN/CREATININE RATIO 13 (6-25); CALCIUM 8.6 mg/dL (8.4-10.2); CARBON DIOXIDE 22 mmol/L (22-29); CHLORIDE 109 mmol/L (98-107); CREATININE, SERUM 0.47 mg/dL (0.57-1.11); EST GLOMERULAR FILTRATION RATE > 60 ML/MIN (60-); GLUCOSE 133 mg/dL (74-118); MAGNESIUM 1.7 MG/DL (1.3-2.1); PHOSPHORUS 3.4 MG/DL (2.3-4.7); POTASSIUM 3.6 mmol/L (3.5-5.1); SODIUM 142 mmol/L (136-145)
[2020-03-08] MEDS ORDERED: DEXTROSE 5%/0.9% SOD CHL 1,000 ML IV ONE (12:15)
[2020-03-08] MEDS: LEVETIRACETAM 500MG/5ML VIAL 1,500 MG in SODIUM CHLORIDE 0.9% 100 ML 100 ML IV SCH (13:10)
[2020-03-08] MEDS: PANTOPRAZOLE 40 MG 10ML VIAL IV SCH (16:56)
[2020-03-08] MEDS ORDERED: ENOXAPARIN SOD INJ 40 MG/0.4 ML SYR SC SCH (17:00)
[2020-03-08] MEDS: PERIPHERAL TPN FORMULA 1 BAG IV SCH (20:12)
[2020-03-09] VITALS (8 sets, daily range): BP systolic 90–132; BP diastolic 55–75
[2020-03-09] MEDS: LEVETIRACETAM 500MG/5ML VIAL 1,500 MG in SODIUM CHLORIDE 0.9% 100 ML 100 ML IV SCH ×2 (00:30→12:00)
[2020-03-09] MEDS: CEFEPIME 1GM/NS 0.9% 50 ML 50 ML IV SCH ×2 (00:45→13:25)
[2020-03-09] MEDS ORDERED: SODIUM CHLORIDE 0.9% 250ML 250 ML ONE ×2 (00:45→21:57)
[2020-03-09] MEDS: PANTOPRAZOLE 40 MG 10ML VIAL IV SCH ×2 (09:03→17:00)
[2020-03-09] MEDS ORDERED: LEVETIRACETAM IN NACL (ISO-OS) 100 ML IV SCH (14:00)
[2020-03-09] MEDS: PERIPHERAL TPN FORMULA 1 BAG IV SCH (21:04)
[2020-03-09] MEDS: LEVETIRACETAM IN NACL (ISO-OS) 100 ML IV SCH (22:05)
[2020-03-10] VITALS (8 sets, daily range): BP systolic 103–123; BP diastolic 50–77
[2020-03-10] MEDS: CEFEPIME 1GM/NS 0.9% 50 ML 50 ML IV SCH ×2 (00:44→13:07)
[2020-03-10] MEDS: LEVETIRACETAM IN NACL (ISO-OS) 100 ML IV SCH (05:53)
[2020-03-10 06:00] LABS: BASOPHILS % 0.5 % (0.0-1.0); EOSINOPHILS # (AUTO) 0.3 (0.0-0.4); EOSINOPHILS % 4.6 % (0.0-6.0); HEMATOCRIT 32.3 % (34.2-44.1); HEMOGLOBIN 9.6 g/dL (12.0-16.0); LYMPHOCYTES # (AUTO) 1.8 (1.0-3.2); LYMPHOCYTES % 29.1 % (18.0-39.1); MEAN CORPUSCULAR HEMOGLOBIN 23.4 pg (28-32); MEAN CORPUSCULAR HGB CONC 29.7 g/dL (31-35); MEAN CORPUSCULAR VOLUME 78.6 fL (81-99); MONOCYTES # (AUTO) 0.5 (0.2-0.8); MONOCYTES % 8.5 % (4.4-11.3); NEUTROPHILS # (AUTO) 3.6 (2.1-6.9); PLATELET COUNT 351 x10e3/uL (140-360); RED BLOOD COUNT 4.11 x10e6/uL (3.6-5.1); RED CELL DISTRIBUTION WIDTH 19.2 % (11.7-14.4)
[2020-03-10 06:35] LABS: BLOOD UREA NITROGEN 14 mg/dL (7-26); BUN/CREATININE RATIO 29 (6-25); CALCIUM 8.4 mg/dL (8.4-10.2); CARBON DIOXIDE 22 mmol/L (22-29); CHLORIDE 109 mmol/L (98-107); CREATININE, SERUM 0.49 mg/dL (0.57-1.11); EST GLOMERULAR FILTRATION RATE > 60 ML/MIN (60-); GLUCOSE 86 mg/dL (74-118); SODIUM 142 mmol/L (136-145)
[2020-03-10] MEDS: PANTOPRAZOLE 40 MG 10ML VIAL IV SCH ×2 (08:47→17:33)
[2020-03-10] MEDS ORDERED: PROPOFOL IV EMULSION 10 MG/ML 20 ML VIAL ONE (13:23)
[2020-03-10] MEDS ORDERED: LIDOCAINE HCL 2% LOCAL INJ 5 ML SDV VIAL INJ ONE (13:23)
[2020-03-10] MEDS: LEVETIRACETAM 500MG/5ML VIAL 1,000 MG in SODIUM CHLORIDE 0.9% 100 ML IV SCH ×2 (14:11→22:19)
[2020-03-10] MEDS: BALSAM PERU/CASTOR OIL 60 GM OINT...G. TP SCH (17:32)
[2020-03-10] MEDS: PERIPHERAL TPN FORMULA 1 BAG IV SCH (20:30)
[2020-03-11] VITALS (8 sets, daily range): BP systolic 93–124; BP diastolic 52–74
[2020-03-11] MEDS: CEFEPIME 1GM/NS 0.9% 50 ML 50 ML IV SCH ×2 (00:45→12:58)
[2020-03-11] MEDS: LEVETIRACETAM 500MG/5ML VIAL 1,000 MG in SODIUM CHLORIDE 0.9% 100 ML IV SCH ×3 (06:26→22:12)
[2020-03-11] MEDS: METOCLOPRAMIDE HCL 10 MG/2ML VIAL IV SCH ×3 (09:05→21:01)
[2020-03-11] MEDS: PANTOPRAZOLE 40 MG 10ML VIAL IV SCH ×2 (09:05→16:09)
[2020-03-11] MEDS: BALSAM PERU/CASTOR OIL 60 GM OINT...G. TP SCH (09:05)
[2020-03-11] MEDS ORDERED: SODIUM CHLORIDE 0.9% 250ML 250 ML ONE (22:16)
[2020-03-12] VITALS (8 sets, daily range): BP systolic 92–150; BP diastolic 62–81
[2020-03-12] MEDS: CEFEPIME 1GM/NS 0.9% 50 ML 50 ML IV SCH ×2 (01:00→13:10)
[2020-03-12] MEDS: LEVETIRACETAM 500MG/5ML VIAL 1,000 MG in SODIUM CHLORIDE 0.9% 100 ML IV SCH ×3 (06:11→22:10)
[2020-03-12] MEDS: PANTOPRAZOLE 40 MG 10ML VIAL IV SCH ×2 (08:23→16:24)
[2020-03-12] MEDS: METOCLOPRAMIDE HCL 10 MG/2ML VIAL IV SCH ×3 (08:23→20:30)
[2020-03-12] MEDS: BALSAM PERU/CASTOR OIL 60 GM OINT...G. TP SCH (08:23)
[2020-03-13] VITALS: BP 100/47
[2020-03-13] MEDS: CEFEPIME 1GM/NS 0.9% 50 ML 50 ML IV SCH ×2 (00:30→12:00)
[2020-03-13] MEDS ORDERED: SODIUM CHLORIDE 0.9% 250ML 250 ML ONE (03:32)
[2020-03-13 04:00] VITALS: BP 105/70
[2020-03-13] MEDS: LEVETIRACETAM 500MG/5ML VIAL 1,000 MG in SODIUM CHLORIDE 0.9% 100 ML IV SCH (06:23)
[2020-03-13 08:00] VITALS: BP 98/68
[2020-03-13] MEDS: METOCLOPRAMIDE HCL 10 MG/2ML VIAL IV SCH (08:18)
[2020-03-13] MEDS: PANTOPRAZOLE 40 MG 10ML VIAL IV SCH (08:18)
[2020-03-13] MEDS: BALSAM PERU/CASTOR OIL 60 GM OINT...G. TP SCH (08:18)
[2020-03-13 09:33] VITALS: BP 98/68
[2020-03-13] MEDS ORDERED: LEVOFLOXACIN250 MG PEG (11:42)
[2020-03-13] MEDS ORDERED: KEFLEX125 MG/5 M PEG (11:42)
[2020-03-13 12:16] VITALS: BP 108/65
== END 2020-03-13 14:14 | DRG 393 ==
LOC: ER 17:46 → ERHOLD 21:32 → MED/SURG3 03-08 01:01
PROVIDERS: ADMIT Internal Medicine; ATTEND Internal Medicine
PROC: 0DH63UZ Insertion of Feeding Device into Stomach, Percutaneous Approach (ICD-10-PCS; principal; 2020-03-10 09:30)
DX: K94.23 Gastrostomy malfunction (principal); R53.2 Functional quadriplegia; J96.10 Chronic respiratory failure, unspecified whether with hypoxia or hypercapnia; N39.0 Urinary tract infection, site not specified; Z93.0 Tracheostomy status; Z74.01 Bed confinement status; G40.909 Epilepsy, unspecified, not intractable, without status epilepticus; R13.12 Dysphagia, oropharyngeal phase; I69.365 Other paralytic syndrome following cerebral infarction, bilateral; B96.4 Proteus (mirabilis) (morganii) as the cause of diseases classified elsewhere; B96.5 Pseudomonas (aeruginosa) (mallei) (pseudomallei) as the cause of diseases classified elsewhere
CPT/HCPCS: 36415; 43246; 70450; 74018; 74150; 80048; 80053; 81001; 82948; 83605; 83735; 84100; 85025; 87040; 87086; 87186; 99251; 99284; J0692; J0696; J2001; J2765; J7042; J7050; J7121; U0002